=== PATIENT | male | born 1975 | race African-American/Black ===

== ENCOUNTER 2024-09-24 16:04 | Inpatient (IN) | payer OTHER, SELFPAY ==
[2024-09-24] VITALS (7 sets, daily range): BP systolic 114–144; BP diastolic 52–91; PULSE 80–96; RESP 15–24; TEMP 33.9–37.4; O2SAT 93–96; BMI 42.5
--- NOTE | 2024-09-24 | ECG_ITS ---
Test Reason : hypoglycemia Blood Pressure : */* mmHG Vent. Rate : 88 BPM Atrial Rate : 88 BPM P-R Int : 178 ms QRS Dur : 84 ms QT Int : 366 ms P-R-T Axes : 35 -11 50 degrees QTcB Int : 442 ms Normal sinus rhythm Inferior infarct , age undetermined Abnormal ECG No previous ECGs available Referred By: Generic ED Physician Electronically Signed By: LITZY WRIGHT MD
--- NOTE | ~2024-09-24 | US_ITS ---
CLINICAL HISTORY: Elevated BUN and creatinine rule out obstruction US Kidneys COMPARISON: None FINDINGS: Right kidney: Length 12.6 cm. Mild right hydronephrosis. Normal Doppler blood flow. No visible mass. No calculi. Left kidney: Length 11.1 cm. No hydronephrosis. Normal Doppler blood flow. No visible mass. No calculi. IMPRESSION: Mild right hydronephrosis. This document has been electronically signed by: Jas Barrera MD on 09/24/2024 22:39:59
[2024-09-24 16:20] LABS: Glucose, Whole Blood 145 mg/dL (60-115)
--- NOTE | 2024-09-24 16:42 | ED_ITS ---
HPI - General Adult General Chief complaint: General Medical Stated complaint: found unresponsive, poc 54, getting d10 now Time Seen by Provider: 09/24/24 16:41 Source: patient Mode of arrival: EMS Limitations: no limitations History of Present Illness ED Provider: Dr. Madhu Carrillo HPI narrative: 49-year-old male with a history of diabetes mellitus, hypertension and kidney disease who presents emergency department for evaluation of altered mental status and hypoglycemia. The patient states that he takes lispro insulin and Lantus insulin for his diabetes. This morning, he states that he was in a hurry and was getting his son off to school and did not check his glucose prior to giving himself insulin. Patient states that he gave himself lispro 20 units subcutaneously and he did not have time to eat breakfast yet to a doctor's appointment.. Patient states that the lispro pen and Lantus pen are significantly different and he does not believe that he confused the two insulin pens. The patient states that he was hospitalized last month at [facility] and was told that his kidney numbers were high and he was following up today with his primary care doctor for repeat blood work. He has not seen a manager integration yet. He states that when he got home from his doctor's appointment, he was tired, did not eat and went to sleep. The patient was then unresponsive. Paramedics noted your glucose was 50. He was given D10 IV and brought to the emergency department. Here in the emergency department the patient was found to be hypothermic with a rectal temperature of 93.1 degrees F. The patient was placed in a Montserrat Hugger warming blanket Related Data Allergies Allergy/AdvReac Type Severity Reaction Status Date / Time No Known Allergies Allergy Verified 09/24/24 16:21 Review of Systems 2 Review of Systems: Yes all other systems are reviewed and are negative COUNTS INCLUDE 234 BEDS AT THE [facility] Past Medical History COUNTS INCLUDE 234 BEDS AT THE [facility] Narrative: Social history: Patient denies tobacco use. He states that he rarely drinks alcohol. He states he uses an occasional marijuana gummy to help insomnia Social History Social History Smoked in Last 30 Days: No Use of substances other than those prescribed or required for medical reasons: No Advance Directives: No Advance Directives Information Provided: Yes Do you have a plan to hurt others: No Plan Physical Exam ED Vital Signs: Vital Signs - 24 hr 09/24/24 16:14 09/24/24 16:28 09/24/24 18:20 Temperature 93.1 F L 93.1 F L 96.1 F L Pulse Rate 86 87 92 Respiratory Rate 20 24 H 15 Blood Pressure 128/81 114/52 L 117/83 Pulse Oximetry 93 93 94 Oxygen Delivery Method Room Air Room Air Room Air 09/24/24 19:37 09/24/24 21:21 Temperature 98.4 F 99.1 F Pulse Rate 95 96 Respiratory Rate 18 18 Blood Pressure 144/91 H Pulse Oximetry 94 96 Oxygen Delivery Method Room Air Room Air BMI result Body Mass Index 42.5 Exam: General: Awake, alert in no distress Head: Normocephalic, atraumatic EENT: PERRL, Lids normal, sclera normal, conjunctiva normal, nose normal , ears normal, throat without erythema or exudates Neck: Supple, no adenopathy Lung: breath sounds symmetric, no wheezing, rales or rhonchi Chest: symmetric movement, nontender Heart: regular rate and rhythm, normal S1, S2 no murmurs or rubs Abdomen: soft, non-tender, nondistended, normal bowel sounds Back: no vertebral tenderness, no CVAT Extremities: Bilateral [id number] amputations Neuro: Awake, alert, oriented, normal speech, cranial nerves intact, moves all extremities symmetrically Psych: Pleasant, cooperative Medical Decision Making Medical Decision Making MDM Narrative: 49-year-old male with a history of diabetes mellitus, hypertension and kidney disease who presents emergency department for evaluation of altered mental status and hypoglycemia. The patient states that he takes lispro insulin and Lantus insulin for his diabetes. This morning, he states that he was in a hurry and was getting his son off to school and did not check his glucose prior to giving himself insulin. Patient states that he gave himself lispro 20 units subcutaneously and he did not have time to eat breakfast yet to a doctor's appointment.. Patient states that the lispro pen and Lantus pen are significantly different and he does not believe that he confused the two insulin pens. The patient states that he was hospitalized last month at [facility] and was told that his kidney numbers were high and he was following up today with his primary care doctor for repeat blood work. He has not seen a manager integration yet. He states that when he got home from his doctor's appointment, he was tired, did not eat and went to sleep. The patient was then unresponsive. Paramedics noted your glucose was 50. He was given D10 IV and brought to the emergency department. Here in the emergency department the patient was found to be hypothermic with a rectal temperature of 93.1 degrees F. The patient was placed in a Montserrat Hugger warming blanket. Patient's initial blood pressure was normal at 128/81. Physical examination revealed bilateral follow the knee amputations otherwise was unremarkable. Differential diagnosis: ?Includes but is not limited to hypoglycemia caused by renal failure, blurry intake, unintentional insulin overdose, anemia, electrolyte abnormalities Course: 22:03 My interpretation patient's laboratory evaluation is as follows: CBC was normal. Serum glucose elevated 119. BUN and creatinine elevated 41 and 5.06. Patient's highest BUN was 34 and his highest creatinine was 4.59 at [facility] in August 2024. Urinalysis : 4+ positive protein, positive glucose, trace ketones, that has, negative leukocyte esterase. Microscopic revealed no bacteria. 3-5 hyaline casts seen. The patient was given food to eat and his glucose in his glucose remained elevated with no further episodes of hypoglycemia. The patient is in his kept on the Montserrat Hugger until his temperature was above 98 degrees F.I did discuss the patient's presentation with the covering manager integration, Dr. Dixon. He was given hypoglycemia may be due to his worsening renal function. He recommended admission to follow his glucose and renal ultrasound reveal out obstruction. I did discuss the patient's presentation with the covering hospitalist, Dr. Hylton and the patient will be admitted to the hospitalist service for further treatment. Admission/Observation Consideration of admission/observation: Escalation of care including admission/observation considered (Yes) Consult Healthcare Provider Management of the patient was discussed with: Hospitalist (Dr. Hylton) and Boiler Welder (Dr. Dixon) Lab Data 09/24/24 17:04 09/24/24 17:04 Labs: Lab Results 09/24/24 09/24/24 09/24/24 Range/Units 16:16 17:04 18:54 WBC 8.4 (4.8-10.8) X10*3/uL RBC 4.67 (4.60-5.80) X10*6/uL Hgb 13.3 L (14.0-18.0) g/dl Hct 42.8 (42.0-52.0) % MCV 91.6 (80.0-98.0) fL MCH 28.5 (27.0-33.0) pg MCHC 31.1 (31.0-36.0) g/dl RDW 13.4 (11.0-16.0) % Plt Count 330 (160-400) X10*3/uL MPV 9.9 (9.4-12.4) fL Immature Gran % (Auto) 0.6 H (0.0-0.4) % Neut % (Auto) 90.4 H (45-73) % Lymph % (Auto) 5.2 L (20-40) % [place] % (Auto) 2.6 (2-11) % Eos % (Auto) 0.1 (0-4) % Baso % (Auto) 1.1 (0-2) % Lymph # (Auto) 0.4 L (1.2-4.9) X10*3/uL [place] # (Auto) 0.2 (0.1-1.2) X10*3/uL Eos # (Auto) 0.0 (0.0-0.4) X10*3/uL Baso # (Auto) 0.1 (0.0-0.2) X10*3/uL Abs Immat Gran (auto) 0.05 H (0.00-0.03) X10*3/uL Absolute Neuts (auto) 7.6 (2.0-8.3) x10*3/uL Absolute Nucleated RBC 0.000 (0.0-0.012) X10*3/uL Nucleated RBC % (auto) 0.0 (0.0-0.2) /100WBC Smear Tech's Comments VERIFIED Sodium 141 (135-145) mmol/L Potassium 4.3 (3.3-5.1) mmol/L Chloride 114 H (96-108) mmol/L Carbon Dioxide 14 L (22-29) mmol/L Anion Gap 17 (12-20) BUN 41 H (9-16) mg/dL Creatinine 5.06 H* (0.5-1.4) mg/dL Estim Creat Clear Calc 21.7 Estimated GFR 12 POC Glucose 145 H 166 H (60-115) mg/dL Random Glucose 119 H (60-115) mg/dL Calcium 8.9 (8.4-10.2) mg/dL Magnesium 2.4 (1.6-2.6) mg/dL Total Bilirubin 0.2 (0.0-1.0) mg/dL AST 26 (5-37) U/L ALT 20 (0-40) U/L Alkaline Phosphatase 91 (39-117) U/L Total Protein 6.1 L (6.5-8.0) g/dL Albumin 3.1 L (3.5-5.0) g/dL Urine Color Urine Appearance Urine pH (5.0-9.0) Ur Specific [place] (1.005-1.025) Urine Protein (Neg-Trace) mg/dL Urine Glucose (UA) (Negative) mg/dL Urine Ketones (Negative) mg/dL Urine Blood (Negative) Urine Nitrite (Negative) Ur Leukocyte Esterase (Negative) Urine RBC (0-2) /HPF Urine WBC (0-5) /HPF Ur Squamous Epith Cells (0-2) /HPF Urine Bacteria (None Seen) Hyaline Casts (0-2) /LPF Urine Opiates Screen (Not Detect) Ur Buprenorphine Scrn (Not Detect) ng/mL Ur Oxycodone Screen (Not Detect) ng/mL Urine Methadone Screen (Not Detect) ng/mL Urine Fentanyl Screen (Not Detect) Ur Barbiturates Screen (Not Detect) Ur Phencyclidine Scrn (Not Detect) Ur Amphetamines Screen (Not Detect) U Benzodiazepines Scrn (Not Detect) Urine Cocaine Screen (Not Detect) U Marijuana (THC) Screen (Not Detect) 09/24/24 Range/Units 18:57 WBC (4.8-10.8) X10*3/uL RBC (4.60-5.80) X10*6/uL Hgb (14.0-18.0) g/dl Hct (42.0-52.0) % MCV (80.0-98.0) fL MCH (27.0-33.0) pg MCHC (31.0-36.0) g/dl RDW (11.0-16.0) % Plt Count (160-400) X10*3/uL MPV (9.4-12.4) fL Immature Gran % (Auto) (0.0-0.4) % Neut % (Auto) (45-73) % Lymph % (Auto) (20-40) % [place] % (Auto) (2-11) % Eos % (Auto) (0-4) % Baso % (Auto) (0-2) % Lymph # (Auto) (1.2-4.9) X10*3/uL [place] # (Auto) (0.1-1.2) X10*3/uL Eos # (Auto) (0.0-0.4) X10*3/uL Baso # (Auto) (0.0-0.2) X10*3/uL Abs Immat Gran (auto) (0.00-0.03) X10*3/uL Absolute Neuts (auto) (2.0-8.3) x10*3/uL Absolute Nucleated RBC (0.0-0.012) X10*3/uL Nucleated RBC % (auto) (0.0-0.2) /100WBC Smear Tech's Comments Sodium (135-145) mmol/L Potassium (3.3-5.1) mmol/L Chloride (96-108) mmol/L Carbon Dioxide (22-29) mmol/L Anion Gap (12-20) BUN (9-16) mg/dL Creatinine (0.5-1.4) mg/dL Estim Creat Clear Calc Estimated GFR POC Glucose (60-115) mg/dL Random Glucose (60-115) mg/dL Calcium (8.4-10.2) mg/dL Magnesium (1.6-2.6) mg/dL Total Bilirubin (0.0-1.0) mg/dL AST (5-37) U/L ALT (0-40) U/L Alkaline Phosphatase (39-117) U/L Total Protein (6.5-8.0) g/dL Albumin (3.5-5.0) g/dL Urine Color Yellow Urine Appearance Clear Urine pH 5.5 (5.0-9.0) Ur Specific [place] 1.020 (1.005-1.025) Urine Protein >=1000 (4+) H (Neg-Trace) mg/dL Urine Glucose (UA) 100 H (Negative) mg/dL Urine Ketones Trace (Negative) mg/dL Urine Blood Negative (Negative) Urine Nitrite Negative (Negative) Ur Leukocyte Esterase Negative (Negative) Urine RBC 0-2 (0-2) /HPF Urine WBC 0-5 (0-5) /HPF Ur Squamous Epith Cells 0-2 (0-2) /HPF Urine Bacteria None Seen (None Seen) Hyaline Casts 3-5 (0-2) /LPF Urine Opiates Screen Not Detected (Not Detect) Ur Buprenorphine Scrn Not Detected (Not Detect) ng/mL Ur Oxycodone Screen Not Detected (Not Detect) ng/mL Urine Methadone Screen Not Detected (Not Detect) ng/mL Urine Fentanyl Screen Not Detected (Not Detect) Ur Barbiturates Screen Not Detected (Not Detect) Ur Phencyclidine Scrn Not Detected (Not Detect) Ur Amphetamines Screen Not Detected (Not Detect) U Benzodiazepines Scrn Not Detected (Not Detect) Urine Cocaine Screen Not Detected (Not Detect) U Marijuana (THC) Screen Not Detected (Not Detect) Independent Interpretation I performed an independent interpretation of an: EKG Interpretation: My independent interpretation patient's 12 EKG done on 09/24/2024 at 17:06 hours is as follows: Normal sinus rhythm with a rate of 88, normal ID interval, QRS duration QTC interval, no ST segment elevation, no ST segment depression, Q- waves in lead 3 no significant T-wave abnormalities, no PACs, no PVCs. Critical Care Time Critical Care Time Critical Care Time: Yes Total Critical Care Time: 45 Attestation: Critical Care: The patient was critically ill with a high probability of imminent or life threatening deterioration. I spent greater than 30 minutes of discontinuous time evaluating the patient,delivering critical care at the bedside, discussing and evaluating pertinent data with consultants. Critical care time does not include time spent performing separately billable procedures or teaching. Total time spent performing critical care was 45 minutes. Discharge Plan Discharge Patient Disposition: Admitted As Inpatient Print Language: Yi
--- OUTSIDE RECORDS SUMMARY | 2024-09-24 16:42 | XMS_ITS | Clinical Summary ---
Author Organization [facility] [address] [facility] Address [address] [place] [address] Phone Care Team Providers Care Hearing Health Technician Name Role Phone Elizabeth De La Fuente MD Primary Care Provider [phone] Allergies No known active allergies Medications blood-glucose meter (Freestyle InsuLinx) misc 1 Each by Does not apply route 4 times daily. 3 Active flash glucose sensor (FreeStyle Lizette 2 Sensor) kit 1 Each by Does not apply route every 14 days. 2 Active compression socks, large misc 1 Each by Does not apply route daily. 2 Active freestyle (FreeStyle Lancets) 28 gauge lancets Use daily 90 each 5 Active glucose blood (Freestyle InsuLinx Test Strips) test strip Use as instructed 100 each 12 5 Active pen needle, diabetic (BD Ultra-Fine Short Pen Needle) 31 gauge x 5/16 needle Use new needle with each insulin injection, 4x/day 400 each 5 Active amLODIPine (NORVASC) 10 mg tablet Take 1 tablet (10 mg total) by mouth 1 (one) time each day. 90 each 5 12/24/19 25 Active hydrALAZINE (APRESOLINE) 50 mg tablet Take 1 tablet (50 mg total) by mouth 3 (three) times a day. 270 each 5 12/24/19 25 Active insulin glargine (LANTUS SoloStar) 100 unit/mL (3 mL) injection pen Inject 30 Units under the skin at bedtime. 30 mL 1 5 04/12/20 25 Active insulin lispro (HumaLOG KwikPen Insulin) 100 unit/mL injection pen Inject into skin 3 times a day before meal <100: 0u, 100-130: 10u, 131-160: 15u, 161-190: 20u, 191-220: 25u, 221-250: 30u, 251-280: 35u,281-310: 40u, 311-340: 45u, 341-370: 48u, and call me. Max dose of 147u per day. 15 mL 2 5 Active metoprolol tartrate (LOPRESSOR) 25 mg tablet Take 1 tablet (25 mg total) by mouth 2 (two) times a day. 180 each 5 12/24/19 25 Active amLODIPine (NORVASC) 10 mg tablet Take 1 tablet (10 mg total) by mouth 1 (one) time each day. 90 each 5 09/25/19 25 Discontinu ed(Reorder ) insulin glargine (LANTUS SoloStar) 100 unit/mL (3 mL) injection pen Inject 30 Units under the skin at bedtime. 30 mL 5 09/25/19 25 Discontinu ed(Reorder ) hydrALAZINE (APRESOLINE) 50 mg tablet Take 1 tablet (50 mg total) by mouth 3 (three) times a day. 270 each 5 09/25/19 25 Discontinu ed(Reorder ) metoprolol tartrate (LOPRESSOR) 25 mg tablet Take 1 tablet (25 mg total) by mouth 2 (two) times a day. 180 each 5 09/25/19 25 Discontinu ed(Reorder ) insulin lispro (HumaLOG KwikPen Insulin) 100 unit/mL injection pen Inject into skin 3 times a day before meal <100: 0u, 100-130: 10u, 131-160: 15u, 161-190: 20u, 191-220: 25u, 221-250: 30u, 251-280: 35u,281-310: 40u, 311-340: 45u, 341-370: 48u, and call me. Max dose of 147u per day. 15 mL 2 5 09/25/19 25 Discontinu ed(Reorder ) Active Problems Problem Noted Date Diagnosed Date Acute on chronic renal failure [place] [place] 01/2025 CKD (chronic kidney disease) stage 3, GFR 30-59 ml/min [place] [place] [facility] [place] 12/30/2020 DM (diabetes mellitus), type 2 with neurological complications [place] [place] [facility] [place] 12/30/2020 DM (diabetes mellitus), type 2 with renal complications [place] [place] [facility] [place] 12/30/2020 Osteomyelitis of right foot [place] [place], [facility] V28) 12/29/2019 DM (diabetes mellitus), type 2 with peripheral vascular complications [place] [place] [facility] [place] 01/08/2019 HTN (hypertension), benign 04/16/2018 Vasculogenic erectile dysfunction 07/05/2016 Microalbuminuria 04/04/2016 Callus of foot 08/10/2015 Encounters Date Type Department Care Team Description 09/24/2024 9:00 AM EDT Office Visit Adult Medicine [address] [phone] Elizabeth De La Fuente MD Stage 3 chronic kidney disease, unspecified whether stage 3a or 3b CKD [place] [place] [facility] [place] (Primary Dx); HTN (hypertension), benign 09/10/2024 Telephone Adult Medicine [address] [phone] Alea Stahl MA Hospital Follow-up (Hospital follow up reschedule for today @12:30pm) 09/07/2024 Telephone Adult [address] [phone] Elizabeth De La Fuente MD Hospital Follow-up (Reschedule ) 08/25/2024 Telephone Adult Medicine [address] [phone] Alea Stahl MA VNA 08/19/2024 7:52 PM EDT - 08/21/2024 4:15 PM EDT Hospital Encounter [facility] [address] [place] [id number] Kole Daley MD Jones, Christopher, MD Mohani, Priya, MD MIGNON (acute kidney injury) [place] [place] (Primary Dx); Acute on chronic renal failure ([facility] V24); Type 2 diabetes mellitus with stage 3b chronic kidney disease, with long-term current use of insulin ([facility] V24, [facility] V28); Stage 3 chronic kidney disease, unspecified whether stage 3a or 3b CKD [place] [place] [facility] [place] Discharge Disposition: Home-Health Care c 08/18/2024 - 08/19/2024 1:49 AM EDT Emergency [facility] Emergency [address] [place] [id number] Discharge Disposition: ED Dismiss - Never Arrived 08/18/2024 Telephone Adult Medicine [address] [phone] Claire Martinez RN 08/17/2024 4:00 PM EDT Office Visit Adult Medicine [address] [phone] Manjula Juárez PA DM (diabetes mellitus), type 2 with peripheral vascular complications [place] [place] [facility] [place] (Primary Dx); HTN (hypertension), benign; Microalbuminuria; Stage 3 chronic kidney disease, unspecified whether stage 3a or 3b CKD [place] [place], [facility] V28) 08/13/2024 Telephone Adult Medicine [address] [phone] Elizabeth De La Fuente MD PT 1 from Last 3 Months Immunizations Name Administration Dates Next Due Influenza Quadravalent, MDCK , 0.5ml, with preservative (Flucelvax) 6mo and older 01/30/2018 Influenza trivalent, 0.5mL, preservative free (Fluarix; FluLaval; Fluzone) ages 6mo and older (Afluria) 3 years and older 01/16/2019,12/15/2016,04/04/2016,2014 Tdap Tetanus diptheria acell ular pertussis (Boostrix; Adacel) 7yo and older 04/04/2016 Surgical History Surgery Date Site/Laterality Comments EYE SURGERY PROCEDURE: HISTORICAL EYE SURGERY; COMMENT: lasik FOOT SURGERY 07/2016 PROCEDURE: HISTORICAL FOOT SURGERY; COMMENT: left 1st MTP resection - intact toe Medical History Medical History Date Comments DM (diabetes mellitus) type II uncontrolled, periph vascular disorder 08/09/2015 DX:DM (diabetes mellitus) type II uncontrolled, periph vascular disorder DM (diabetes mellitus), type 2 with peripheral vascular complications ([facility] V24, [facility] V28) 01/08/2019 DX:DM (diabetes mellitus), type 2 with peripheral vascular complications (HCC) DM (diabetes mellitus), type 2 with neurological complications ([facility] V24, [facility] V28) 12/30/2020 DX:DM (diabetes mellitus), t ype 2 with neurological complications (HCC) DM (diabetes mellitus), type 2 with renal complications ([facility] V24, [facility] V28) 12/30/2020 DX:DM (diabetes mellitus), t ype 2 with renal complications (HCC) CKD (chronic kidney disease) stage 3, GFR 30-59 ml/min ([facility] V24, [facility] V28) 12/30/2020 DX:CKD (chronic kidney disea se) stage 3, GFR 30-59 ml/min ([facility]) Microalbuminuria 04/04/2016 DX:Microalbumin uria Family History Medical History Relation Name Comments Diabetes Uncle 1 Father's side Relation Name Status Comments Father Alive healthy Mother Alive healthy Sister Alive healthy Uncle 1 Uncle 2 Social History Tobacco Use Types Packs/Day Years Used Date Smoking Tobacco: Never Smokeless Tobacco: Never Alcohol Use Standard Drinks/Week Comments Not Currently 0 (1 standard drink = 0.6 oz pur e alcohol) social drinker in the past Interpersonal Safety Answer Date Record ed Physical Abuse 08/20/2024 Verbal Abuse 08/20/2024 Sex and Gender Information Value Date Recorded Sex Assigned at Male 08/19/2024 8:29 PM EDT Legal Sex Male 8:28 PM EST Gender Identity Male 08/19/2024 8:29 PM EDT Sexual Orientation Straight 08/19/2024 8: 29 PM EDT Obstetrics History Last Filed Vital Signs Vital Sign Reading Time Taken Comments Blood Pressure 118/74 09/24/2024 9:04 AM EDT Pulse 110 09/24/2024 9:04 AM EDT Temperature 36.6 ??C (97.9 ??F) 09/24/2024 9:04 AM ED T Respiratory Rate 14 09/24/2024 9:04 AM EDT Oxygen Saturation 98% 09/24/2024 9:04 AM EDT Inhaled Oxygen Concentration - - Weight 130 kg (287 lb) 09/24/2024 9:04 AM EDT Height 190.5 cm (6' 3 ) 09/24/2024 9:04 AM EDT Body Mass Index 35.87 09/24/2024 9:04 AM EDT Plan of Treatment Upcoming Encounters Date Type Department Care Team (Late st Contact Info) Description 11/25/2024 11:00 AM EDT Office Visit Adult Medicine [address] [phone] Manjula Juárez PA [address] [place] [phone] Health Maintenance Due Date Last Done Comments Diabetes: Annual Foot Exam 1986 Diabetes: Annual Retina Eye Exam 1986 Hepatitis B Vaccines (1 of 3 - 19+ 3-dose series) 1995 Pneumococcal Vaccine: Pediatrics (0 to 5 Years) and At-Risk Patients (6 to 64 Years) (2 of 2 - PCV) 07/30/2017 07/30/2016 Colorectal Cancer Screening: Colonoscopy 04/14/2022 Depression Screening 04/14/2022 HIV Screening 04/14/2022 Social Influencers of Health Screening 04/14/2022 COVID-19 Vaccine ( season) 2024 04/04/2021, 08/26/2020, 08/04/2020 Influenza Vaccine (Season Ended) 2025 02/09/2022, 04/04/2021, 01/16/2019, Additional history exists Diabetes: Blood Sugar Control Test (HGBA1C) 02/16/2025 08/17/2024, 08/27/2022 Diabetes: Annual Urine Albumin-Creatinine Ratio (uACR) 08/17/2025 08/17/2024, 08/27/2022 Diabetes: Annual GFR (Glomerular Filtration Rate) 08/21/2025 09/24/2024, 08/21/2024, 08/20/2024, Additional history exists Hypertension/CHF/CAD Annual BMP Blood Test 08/21/2025 09/24/2024, 08/21/2024, 08/20/2024, Additional history exists DTaP,Tdap,and Td Vaccines (2 - Td or Tdap) 04/04/2026 04/04/2016 Cholesterol Screening (Lipid Panel) 08/17/2029 09/24/2024, 08/17/2024, 11/28/2021 Hepatitis C Screening Completed 08/21/2024 HIB Vaccines Aged Out No longer eligi ble based on patient's age to complete this topic HPV Vaccines Aged Out No longer eligi ble based on patient's age to complete this topic Hepatitis A Vaccines Aged Out No long er eligible based on patient's age to complete this topic IPV Vaccines Aged Out No longer eligi ble based on patient's age to complete this topic MMR Vaccines Aged Out No longer eligi ble based on patient's age to complete this topic Meningococcal ACWY Vaccine Aged Out N o longer eligible based on patient's age to complete this topic Meningococcal B Vaccine Aged Out No l onger eligible based on patient's age to complete this topic RSV Immunization Patients Under 20 months Aged Out No longer eligible based on patient's age to complete this topic Varicella Vaccines Aged Out No longer eligible based on patient's age to complete this topic Procedures Procedure Name Priority Date/Time Associated Diagnosis Comments CBC WITH AUTO DIFFERENTIAL Routine 09/24/2024 9:56 AM EDT Stage 3 chronic kidney disease, unspecified whether stage 3a or 3b CKD ([facility] V24, [facility] V28) CBC AND DIFFERENTIAL Routine 09/24/2024 9:56 AM EDT Stage 3 chronic kidney disease, unspecified whether stage 3a or 3b CKD (CMS/HCC V24, CMS/HCC V28) COMPREHENSIVE METABOLIC PANEL Routine 09/24/2024 9:56 AM EDT Stage 3 chronic kidney disease, unspecified whether stage 3a or 3b CKD (CMS/HCC V24, CMS/HCC V28) LIPID PANEL WITH REFLEX TO DIRECT LDL Routine 09/24/2024 9:56 AM EDT HTN (hypertension), benign HEPATITIS C ANTIBODY Routine 08/21/2024 12:21 PM EDT HEPATITIS B SURFACE ANTIGEN WITH CONFIRMATION Routine 08/21/2024 12:21 PM EDT ANTI-NEUTROPHILIC CYTOPLASMIC ANTIBODY Routine 08/21/2024 12:21 PM EDT C4 COMPLEMENT Routine 08/21/2024 12:21 PM EDT C3 COMPLEMENT Routine 08/21/2024 12:21 PM EDT DAMARIS IFA WITH TITER AND PATTERN Routine 08/21/2024 12:21 PM EDT POCT GLUCOSE BLOOD Routine 08/21/2024 11 :31 AM EDT POCT GLUCOSE BLOOD Routine 08/21/2024 8: 10 AM EDT WV IMMUNOFIXATION ELECTROPHORESIS SERUM Routine 08/21/2024 6:56 AM EDT IMMUNOGLOBULINS IGG, IGA, IGM Routine 08/21/2024 6:56 AM EDT IMMUNOFIXATION ELECTROPHORESIS Routine 08/21/2024 6:56 AM EDT CBC WITH AUTO DIFFERENTIAL Routine 08/21/2024 6:56 AM EDT IMMUNOFIXATION ELECTROPHORESIS Routine 08/21/2024 6:56 AM EDT VITAMIN D 25 HYDROXY Routine 08/21/2024 6:56 AM EDT PARATHYROID HORMONE INTACT Routine 08/21/2024 6:56 AM EDT MAGNESIUM Routine 08/21/2024 6:56 AM EDT CBC AND DIFFERENTIAL Routine 08/21/2024 6:56 AM EDT BASIC METABOLIC PANEL Routine 08/21/2024 6:56 AM EDT POCT GLUCOSE BLOOD Routine 08/20/2024 7: 56 PM EDT POCT GLUCOSE BLOOD Routine 08/20/2024 4: 10 PM EDT POCT GLUCOSE BLOOD Routine 08/20/2024 11 :09 AM EDT POCT GLUCOSE BLOOD Routine 08/20/2024 8: 19 AM EDT CBC WITH AUTO DIFFERENTIAL Routine 08/20/2024 6:35 AM EDT CBC AND DIFFERENTIAL Routine 08/20/2024 6:35 AM EDT BASIC METABOLIC PANEL Routine 08/20/2024 6:35 AM EDT YELLOW URINE NO ADDITIVE Routine 08/20/2024 3:20 AM EDT EXTRA TUBES Routine 08/20/2024 3:20 AM EDT CREATININE, URINE, RANDOM STAT 08/20/2024 3:20 AM EDT ECG 12-LEAD Routine 08/20/2024 1:23 AM EDT POCT GLUCOSE BLOOD Routine 08/20/2024 12 :[address] ABDOMEN PELVIS WO CONTRAST STAT 08/19/2024 9:17 PM EDT PHOSPHORUS Add-On 08/19/2024 4:32 PM EDT URIC ACID Add-On 08/19/2024 4:32 PM EDT MAGNESIUM Add-On 08/19/2024 4:32 PM EDT CBC WITH AUTO DIFFERENTIAL STAT 08/19/2024 4:32 PM EDT COMPREHENSIVE METABOLIC PANEL STAT 08/19/2024 4:32 PM EDT CBC AND DIFFERENTIAL STAT 08/19/2024 4:32 PM EDT REYNA URINE CULTURE TUBE STAT 08/19/2024 4:29 PM EDT URINALYSIS WITH REFLEX MICROSCOPIC AND CULTURE STAT 08/19/2024 4:29 PM EDT URINALYSIS WITH REFLEX MICROSCOPIC AND CULTURE STAT 08/19/2024 4:29 PM EDT CULTURE URINE STAT 08/19/2024 4:29 PM EDT POC GLUCOSE Routine 08/18/2024 9:42 AM EDT DM (diabetes mellitus), type 2 with peripheral vascular complications (CMS/HCC V24, CMS/HCC V28) PROTEIN, URINE, RANDOM STAT Add-on 4:53 PM EDT SODIUM, URINE, RANDOM STAT Add-on 08/17/2024 4:53 PM EDT MICROALBUMIN CREATININE URINE RATIO Routine 08/17/2024 4:53 PM EDT DM (diabetes mellitus), type 2 with peripheral vascular complications (CMS/HCC V24, [facility] V28) Microalbuminuria COMPREHENSIVE METABOLIC PANEL Routine 08/17/2024 4:52 PM EDT HTN (hypertension), benign Stage 3 chronic kidney disease, unspecified whether stage 3a or 3b CKD [place] [place] [facility] [place] LIPID PANEL WITH REFLEX TO DIRECT LDL Routine 08/17/2024 4:52 PM EDT DM (diabetes mellitus), type 2 with peripheral vascular complications [place] [place] [facility] [place] HTN (hypertension), benign HEMOGLOBIN A1C Routine 08/17/2024 4:51 PM EDT DM (diabetes mellitus), type 2 with peripheral vascular complications [place] [place] [facility] [place] from Last 3 Months Results * (ABNORMAL) Lipid panel with reflex to direct LDL (09/24/2024 9:56 AM EDT) Only the most recent of2 resultswithin the time period is included. Cholesterol 309(H) 0 - 200 mg/dL LAB CHEMISTRY METHOD 09/24/2024 1:22 PM [facility] Triglycerides 53 0 - 150 mg/dL LAB CHEMISTRY METHOD 09/24/2024 1:22 PM [facility] HDL 190 >=40 mg/dL LAB CHEMISTRY METHOD 09/24/2024 1:22 PM [facility] LDL Calculated 108(H) 0 - 100 mg/dL LAB CHEMISTRY METHOD 09/24/2024 1:22 PM [facility] VLDL Cholesterol Jordan 10.6 mg/dL LAB CHEMISTRY METHOD 09/24/2024 1:22 PM [facility] Non HDL Chol. (LDL+VLDL) 119 <145 mg/dL LAB CHEMISTRY METHOD 09/24/2024 1:22 PM [facility] Chol/HDL Ratio 1.6 0.0 - 4.4 LAB CHEMISTRY METHOD 09/24/2024 1:22 PM [facility] Blood Venous blood specimen / Unknown Venipuncture / Unknown 09/24/2024 9:56 AM EDT 09/24/2024 9:56 AM EDT us Elizabeth De La Fuente MD LAB BLOOD ORDERABLES Final Resul t [facility] [address] [place] [address], * (ABNORMAL) CBC auto differential (09/24/2024 9:56 AM EDT) Only the most recent of4 resultswithin the time period is included. WBC 6.7 4.8 - 10.8 K/mcL LAB HEMETOLOGY METHOD 09/24/2024 12:24 PM EDT [facility] RBC 4.70 4.50 - 5.50 M/mcL LAB HEMETOLOGY METHOD 09/24/2024 12:24 PM EDT [facility] Hemoglobin 13.3(L) 13.5 - 17.5 g/dL LAB HEMETOLOGY METHOD 09/24/2024 12:24 PM EDT [facility] Hematocrit 40.5(L) 42.0 - 54.0 % LAB HEMETOLOGY METHOD 09/24/2024 12:24 PM EDT [facility] MCV 87.1 79.0 - 98.0 FL LAB HEMETOLOGY METHOD 09/24/2024 12:24 PM EDT [facility] MCH 28.6 27.0 - 32.0 pcg LAB HEMETOLOGY METHOD 09/24/2024 12:24 PM EDT [facility] MCHC 32.8 32.0 - 37.0 g/dL LAB HEMETOLOGY METHOD 09/24[facility]24 [facility] RDW 13.2 11.0 - 15.0 % LAB HEMETOLOGY METHOD 09/24/2024 12:24 PM [facility] Platelets 449(H) 130 - 400 K/mcL LAB HEMETOLOGY METHOD 09/24/2024 12:24 PM [facility] MPV 10.2 7.0 - 11.0 FL LAB HEMETOLOGY METHOD 09/24/2024 12:24 PM [facility] NRBC 0.0 <1.0 % LAB HEMETOLOGY METHOD 09/24/2024 12:24 PM [facility] NRBC Absolute 0.00 <0.10 K/mcL LAB HEMETOLOGY METHOD 09/24/2024 12:24 PM [facility] Neutrophils Relative 73.1 % LAB HEMETOLOGY METHOD 09/24/2024 12:24 PM [facility] Lymphocytes Relative 17.9 % LAB HEMETOLOGY METHOD 09/24/2024 12:24 PM [facility] Monocytes Relative 6.0 % LAB HEMETOLOGY METHOD 09/24/2024 12:24 PM [facility] Eosinophils Relative 0.9 % LAB HEMETOLOGY METHOD 09/24/2024 12:24 PM [facility] Basophils Relative 1.2 % LAB HEMETOLOGY METHOD 09/24/2024 12:24 PM [facility] Immature Granulocytes Relative 0.9 % LAB HEMETOLOGY METHOD 09/24/2024 12:24 PM [facility] Neutrophils Absolute 4.87 1.50 - 7.00 K/mcL LAB HEMETOLOGY METHOD 09/24/2024 12:24 PM [facility] Lymphocytes Absolute 1.19 1.00 - 5.00 K/mcL LAB HEMETOLOGY METHOD 09/24/2024 12:24 PM [facility] Monocytes Absolute 0.40 0.20 - 1.00 K/mcL LAB HEMETOLOGY METHOD 09/24/2024 12:24 PM EDT [facility] Eosinophils Absolute 0.06 0.00 - 0.50 K/mcL LAB HEMETOLOGY METHOD 09/24/2024 12:24 PM EDT [facility] Basophils Absolute 0.08 0.00 - 0.20 K/mcL LAB HEMETOLOGY METHOD 09/24/2024 12:24 PM EDT [facility] Immature Granulocytes Absolute 0.06(H) 0.00 - 0.03 K/mcL LAB HEMETOLOGY METHOD 09/24/2024 12:24 PM EDT [facility] Blood Venous blood specimen / Unknown Venipuncture / Unknown 09/24/2024 9:56 AM EDT 09/24/2024 9:56 AM EDT us Elizabeth De La Fuente MD LAB BLOOD ORDERABLES Final Resul t [facility] [address] [place] [address], [place] [phone] * (ABNORMAL) Comprehensive metabolic panel (09/24/2024 9:56 AM EDT) Only the most recent of3 resultswithin the time period is included. Sodium 140 133 - 145 mmol/L LAB CHEMISTRY METHOD 09/24/2024 1:22 PM [facility] Potassium 4.2 3.5 - 5.5 mmol/L LAB CHEMISTRY METHOD 09/24/2024 1:22 PM [facility] Chloride 113(H) 96 - 110 mmol/L LAB CHEMISTRY METHOD 09/24/2024 1:22 PM [facility] CO2 20(L) 21 - 32 mmol/L LAB CHEMISTRY METHOD 09/24/2024 1:22 PM [facility] Anion Gap 7 3 - 11 LAB CHEMISTRY METHOD 09/24/2024 1:22 PM [facility] Glucose 52(L) 70 - 100 mg/dL LAB CHEMISTRY METHOD 09/24/2024 1:22 PM [facility] BUN 40(H) 5 - 25 mg/dL LAB CHEMISTRY METHOD 09/24/2024 1:22 PM [facility] Creatinine 5.44(H) 0.70 - 1.30 mg/dL LAB CHEMISTRY METHOD 09/24/2024 1:22 PM [facility] eGFR 12(L) >=60 mL/min/1. 73m2 LAB CHEMISTRY METHOD 09/24/2024 1:22 PM [facility] Comment:Calculation based on the Chronic Kidney Disease Epidemiology Collaboration (CKD-EPI) equation refit without adjustment for race. BUN/Creatinine Ratio 7.4 LAB CHEMISTRY METHOD 09/24/2024 1:22 PM [facility] Calcium 9.1 8.5 - 10.5 mg/dL LAB CHEMISTRY METHOD 09/24/2024 1:22 PM [facility] AST (SGOT) 20 10 - 42 unit/L LAB CHEMISTRY METHOD 09/24/2024 1:22 PM [facility] ALT (SGPT) 25 10 - 60 unit/L LAB CHEMISTRY METHOD 09/24/2024 1:22 PM [facility] Alkaline Phosphatase 110 42 - 121 unit/L LAB CHEMISTRY METHOD 09/24/2024 1:22 PM [facility] Total Protein 5.9(L) 6.0 - 8.0 g/dL LAB CHEMISTRY METHOD 09/24/2024 1:22 PM [facility] Albumin 2.5(L) 3.2 - 5.0 g/dL LAB CHEMISTRY METHOD 09/24/2024 1:22 PM [facility] Total Bilirubin 0.2 0.0 - 1.4 mg/dL LAB CHEMISTRY METHOD 09/24/2024 1:22 PM [facility] Blood Venous blood specimen / Unknown Venipuncture / Unknown 09/24/2024 9:56 AM EDT 09/24/2024 9:56 AM EDT us Elizabeth De La Fuente MD LAB BLOOD ORDERABLES Final Resul t Performing Organization Address [facility]/ZIP Co de Phone Number [facility] [address] [place] [address], [place] [phone] * Hepatitis C antibody (08/21/2024 12:21 PM EDT) Pathologist [facility] Hepatitis C Antibody Negative Negative LAB CHEMISTRY METHOD 08/21/2024 3:29 PM EDT [facility] Blood Venous blood specimen / Unknown Venipuncture / Unknown 08/21/2024 12:21 PM EDT 08/21/2024 12:41 PM EDT Charan Villalobos MD LAB BLOOD ORDERABLES Final Res ult Performing Organization Address [facility] de Phone Number [facility] [address] [place] [address], [place] [phone] * Hepatitis B surface antigen with reflex to confirmation (08/21/2024 12:21 PM EDT) [facility] Hepatitis B Surface Ag Negative Negative LAB CHEMISTRY METHOD 08/21/2024 3:01 PM EDT [facility] Blood Venous blood specimen / Unknown Venipuncture / Unknown 08/21/2024 12:21 PM EDT 08/21/2024 12:41 PM EDT Narrative [facility] - 08/21/2024 3:01 PM EDT Over the counter supplements containing high doses of biotin may interfere with this assay. ??If interference is suspected, patients shoud be retested after refraining from biotin supplements for 72 hours. us Charan Villalobos MD LAB BLOOD ORDERABLES Final Res ult Performing Organization Address [facility] Co de Phone Number [facility] [address] [place] [address], [place] [phone] * DAMARIS IFA with titer and pattern (08/21/2024 12:21 PM EDT) [facility] DAMARIS Negative Negative 08/24/2024 2:37 PM EDT [facility] Blood Venous blood specimen / Unknown Venipuncture / Unknown 08/21/2024 12:21 PM EDT 08/21/2024 12:41 PM EDT us Charan Villalobos MD LAB BLOOD ORDERABLES Final Res ult [facility] [address] [place] [address], [place] [phone] * Anti-neutrophilic cytoplasmic antibody (08/21/2024 12:21 PM EDT) [facility] Myeloperoxidase Ab Negative Negative LAB CHEMISTRY METHOD 08/26/2024 1:05 PM EDT [facility] Myeloperoxidase Ab, Quant 1 <=20 units LAB CHEMISTRY METHOD 08/26/2024 1:05 PM EDT [facility] Proteinase-3 Ab Negative Negative LAB CHEMISTRY METHOD 08/26/2024 1:05 PM EDT [facility] Proteinase-3 Ab Quant 1 <=20 units LAB CHEMISTRY METHOD 08/26/2024 1:05 PM EDT [facility] Blood Venous blood specimen / Unknown Venipuncture / Unknown 08/21/2024 12:21 PM EDT 08/21/2024 12:41 PM EDT us Charan Villalobos MD LAB BLOOD ORDERABLES Final Res ult [facility] [address] [place] [address], [place] [phone] * C3 complement (08/21/2024 12:21 PM EDT) C3 Complement 125 88 - 201 mg/dL LAB CHEMISTRY METHOD 08/21/2024 1:44 PM EDT [facility] Blood Venous blood specimen / Unknown Venipuncture / Unknown 08/21/2024 12:21 PM EDT 08/21/2024 12:41 PM EDT Charan Villalobos MD LAB BLOOD ORDERABLES Final Res ult Performing Organization Address City/[facility]/ZIP Co de Phone Number [facility] [address] [place] [address], [place] [phone] * (ABNORMAL) C4 complement (08/21/2024 12:21 PM EDT) C4 Complement 54(H) 16 - 47 mg/dL LAB CHEMISTRY METHOD 08/21/2024 1:44 PM EDT [facility] Blood Venous blood specimen / Unknown Venipuncture / Unknown 08/21/2024 12:21 PM EDT 08/21/2024 12:41 PM EDT Charan Villalobos MD LAB BLOOD ORDERABLES Final Res ult Performing Organization Address City/[facility]/ZIP Co de Phone Number [facility] [address] [place] [address], [place] [phone] * (ABNORMAL) POCT Glucose, blood (08/21/2024 11:31 AM EDT) Only the most recent of7 resultswithin the time period is included. Glucose POCT 231(H) 70 - 100 mg/dL 08/21/2024 11:32 AM EDT [facility] Blood Capillary blood specimen / Unknown 08/21/2024 11:31 AM EDT 08/21/2024 11:34 AM EDT Sonia Upton MD LAB POINT OF CARE TE ST DOCKED DEVICE UNSOLICITED RESULTS Final Result Performing Organization Address [facility]/ZIP Co de Phone Number [facility] [address] [place] [address], [place] [phone] * Pathologist Review Immunofixation (08/21/2024 6:56 AM EDT) Pathologist [facility] Pathologist Interpretation Reviewed by Criselda Mcdowell MD 08/25/2024 1:52 PM EDT [facility] Blood Venous blood specimen / Unknown Venipuncture / Unknown 08/21/2024 6:56 AM EDT 08/21/2024 7:41 AM EDT us Tobin Alfaro MD LAB BLOOD ORDERABLES Final Resu lt Performing Organization Address [facility]/ZIP Co de Phone Number [facility] [address] [place] [address], [place] [phone] * (ABNORMAL) Vitamin D 25 hydroxy (08/21/2024 6:56 AM EDT) Pathologist [facility] Vit D, 25-Hydroxy 11.0(L) 30.0 - 80.0 ng/mL LAB CHEMISTRY METHOD 08/21/2024 9:32 AM EDT [facility] Blood Venous blood specimen / Unknown Venipuncture / Unknown 08/21/2024 6:56 AM EDT 08/21/2024 7:42 AM EDT us Tobin Alfaro MD LAB BLOOD ORDERABLES Final Resu lt Performing Organization Address City/[facility]/ZIP Co de Phone Number [facility] [address] [place] [address], [place] [phone] * Immunofixation electrophoresis serum (08/21/2024 6:56 AM EDT) [facility] Immunofixation Result, Serum No monoclonal immunoglobulins detected. LAB CHEMISTRY METHOD 08/25/2024 1:52 PM EDT [facility] Blood Venous blood specimen / Unknown Venipuncture / Unknown 08/21/2024 6:56 AM EDT 08/21/2024 7:41 AM EDT us Tobin Alfaro MD LAB BLOOD ORDERABLES Final Resu lt Performing Organization Address [facility]/ZIP Co de Phone Number [facility] [address] [place] [address], [place] [phone] * (ABNORMAL) Immunoglobulins IgG, IgA, IgM (08/21/2024 6:56 AM EDT) Total IgG 498(L) 549 - 1,584 mg/dL LAB CHEMISTRY METHOD 08/21/2024 8:35 AM EDT [facility] IgA 176 61 - 348 mg/dL LAB CHEMISTRY METHOD 08/21/2024 8:35 AM EDT [facility] IgM 50 23 - 259 mg/dL LAB CHEMISTRY METHOD 08/21/2024 8:35 AM EDT [facility] Blood Venous blood specimen / Unknown Venipuncture / Unknown 08/21/2024 6:56 AM EDT 08/21/2024 7:42 AM EDT us Tobin Alfaro MD LAB BLOOD ORDERABLES Final Resu lt Performing Organization Address City/[facility]/ZIP Co de Phone Number [facility] [address] [place] [address], [place] [phone] * (ABNORMAL) Parathyroid hormone intact (08/21/2024 6:56 AM EDT) PTH 357.0(H) 18.5 - 88.0 pcg/mL LAB CHEMISTRY METHOD 08/21/2024 9:36 AM EDT [facility] Blood Venous blood specimen / Unknown Venipuncture / Unknown 08/21/2024 6:56 AM EDT 08/21/2024 7:42 AM EDT Tobin Alfaro MD LAB BLOOD ORDERABLES Final Resu lt Performing Organization Address [facility]/ZIP Co de Phone Number [facility] [address] [place] [address], [place] [phone] * Magnesium (08/21/2024 6:56 AM EDT) Only the most recent of2 resultswithin the time period is included. [facility] Magnesium 2.4 1.9 - 2.6 mg/dL LAB CHEMISTRY METHOD 08/21/2024 8:27 AM EDT [facility] Blood Venous blood specimen / Unknown Venipuncture / Unknown 08/21/2024 6:56 AM EDT 08/21/2024 7:42 AM EDT Sonia Upton MD LAB BLOOD ORDERABLES Final Resul t Performing Organization Address [facility] de Phone Number [facility] [address] [place] [address], [place] [phone] * (ABNORMAL) Basic metabolic panel (08/21/2024 6:56 AM EDT) Only the most recent of2 resultswithin the time period is included. [facility] Sodium 142 133 - 145 mmol/L LAB CHEMISTRY METHOD 08/21/2024 8:31 AM EDT [facility] Potassium 3.8 3.5 - 5.5 mmol/L LAB CHEMISTRY METHOD 08/21/2024 8:31 AM EDT [facility] Chloride 109 96 - 110 mmol/L LAB CHEMISTRY METHOD 08/21/2024 8:31 AM EDT [facility] CO2 25 21 - 32 mmol/L LAB CHEMISTRY METHOD 08/21/2024 8:31 AM EDT [facility] Anion Gap 8 3 - 11 LAB CHEMISTRY METHOD 08/21/2024 8:31 AM EDT [facility] Glucose 118(H) 70 - 100 mg/dL LAB CHEMISTRY METHOD 08/21/2024 8:31 AM EDT [facility] BUN 27(H) 5 - 25 mg/dL LAB CHEMISTRY METHOD 08/21/2024 8:[facility] Creatinine 4.22(H) 0.70 - 1.30 mg/dL LAB CHEMISTRY METHOD 08/21/2024 8:31 AM EDT [facility] eGFR 16(L) >=60 mL/min/1. 73m2 LAB CHEMISTRY METHOD 08/21/2024 8:31 AM EDT [facility] Comment:Calculation based on the??Chronic Kidney Disease Epidemiology Collaboration (CKD-EPI) equation refit??without adjustment for race. BUN/Creatinine Ratio 6.4 LAB CHEMISTRY METHOD 08/21/2024 8:31 AM [facility] Calcium 8.3(L) 8.5 - 10.5 mg/dL LAB CHEMISTRY METHOD 08/21/2024 8:31 AM EDT [facility] Blood Venous blood specimen / Unknown Venipuncture / Unknown 08/21/2024 6:56 AM EDT 08/21/2024 7:42 AM EDT Sonia Upton MD LAB BLOOD ORDERABLES Final Resul t [facility] [address] [place] [address], * Yellow urine no additive (08/20/2024 3:20 AM EDT) Extra Tube Hold for add-ons. 08/20/2024 6:01 AM EDT [facility] Comment:Auto resulted. Urine Urine specimen obtained by clean catch procedure / Unknown 08/20/2024 3:20 AM EDT 08/20/2024 4:14 AM EDT Owen Waggoner MD LAB URINE ORDERABLES Final Result Performing Organization Address City/[facility]/ZIP Co de Phone Number [facility] [address] [place] [address], [place] [phone] * Creatinine, urine, random (08/20/2024 3:20 AM EDT) Creatinine, Urine 201.0 mg/dL LAB CHEMISTRY METHOD 08/20/2024 4:50 AM EDT [facility] Urine Urine specimen obtained by clean catch procedure / Unknown Non-blood Collection / Unknown 08/20/2024 3:20 AM EDT 08/20/2024 4:14 AM EDT Owen Waggoner MD LAB URINE ORDERABLES Final Result Performing Organization Address [facility]/ZIP Co de Phone Number [facility] [address] [place] [address], [place] [phone] * ECG 12 lead (08/20/2024 1:23 AM EDT) Ventricular Rate ECG 108 BPM GEMUSE Atrial Rate 108 BPM GEMUSE P-R Interval 158 ms GEMUSE QRS Duration 106 ms GEMUSE Q-T Interval 384 ms GEMUSE QTc 514 ms GEMUSE P Wave [place] 28 degrees GEMUSE R [place] -29 degrees GEMUSE T [place] 106 degrees GEMUSE ECG Interpretation Sinus tachycardia Possible Left atrial enlargement Incomplete right bundle branch block Left ventricular hypertrophy T wave abnormality, consider lateral ischemia Abnormal ECG No previous ECGs available Confirmed by MD Dashawn, Owen ([id number]) on 08/21/2024 1:12:55 AM GEMUSE 08/20/2024 1:23 AM EDT 08/21/2024 1:12 AM EDT Owen Waggoner MD ECG ORDERABLES Final Resul t Performing Organization Address City/[facility]/ZIP Co de Phone Number G[facility] * CT Abdomen Pelvis wo Contrast (08/19/2024 9:17 PM EDT) Anatomical Region Laterality Modality Body Computed Tomogra phy 08/19/2024 10:3 5 PM EDT Impressions 08/19/2024 10:35 PM EDT 1. No acute inflammatory process identified within the abdomen or pelvis. No radiopaque renal calculi, hydronephrosis, or hydroureter. This document has been electronically signed by: Jesus Alberto Huggins MD on 08/19/2024 22:35:27 Narrative 08/19/2024 10:35 PM EDT INDICATION: MIGNON, hematuria CT abdomen and pelvis without contrast Comparison: None Findings: No consolidation or effusion. Low-attenuation left adrenal adenomas measuring up to 1.7 cm in maximum axial dimension are present. The gallbladder and solid organs are otherwise unremarkable in appearance. No radiopaque renal calculi. No hydronephrosis or hydroureter. 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 No renal stones. No bowel obstruction, pneumoperitoneum, or pneumatosis. Pelvic contents unremarkable. No bladder wall thickening. Normal appendix. The bones are intact. Procedure Note Jesus Alberto Huggins MD - 08/19/2024 INDICATION: MIGNON, hematuria CT abdomen and pelvis without contrast Comparison: None Findings: No consolidation or effusion. Low-attenuation left adrenal adenomas measuring up to 1.7 cm in maximum axial dimension are present. The gallbladder and solid organs are otherwise unremarkable in appearance. No radiopaque renal calculi. No hydronephrosis or hydroureter. 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 No renal stones. No bowel obstruction, pneumoperitoneum, or pneumatosis. Pelvic contents unremarkable. No bladder wall thickening. Normalappendix. The bones are intact. IMPRESSION: 1. No acute inflammatory process identified within the abdomen orpelvis. No radiopaque renal calculi, hydronephrosis, or hydroureter. This document has been electronically signed by: Jesus Alberto Huggins MD on 08/19/2024 22:35:27 Tarah COBOS [facility] CT PROCEDURES Final Result * Uric acid (08/19/2024 4:32 PM EDT) Uric Acid 7.1 3.7 - 9.2 mg/dL LAB CHEMISTRY METHOD 08/19/2024 11:53 PM EDT [facility] Blood Venous blood specimen / Unknown Venipuncture / Unknown 08/19/2024 4:32 PM EDT 08/19/2024 5:35 PM EDT Owen Waggoner MD LAB BLOOD ORDERABLES Final Result Performing Organization Address City/[facility]/ZIP Co de Phone Number [facility] [address] [place] [address], [place] [phone] * Phosphorus (08/19/2024 4:32 PM EDT) [facility] Phosphorus 3.7 2.5 - 4.5 mg/dL LAB CHEMISTRY METHOD 08/19/2024 11:53 PM EDT [facility] Blood Venous blood specimen / Unknown Venipuncture / Unknown 08/19/2024 4:32 PM EDT 08/19/2024 5:35 PM EDT Owen Waggoner MD LAB BLOOD ORDERABLES Final Result Performing Organization Address [facility]/ZIP Co de Phone Number [facility] [address] [place] [address], [place] [phone] * (ABNORMAL) Urinalysis with reflex microscopic and culture (08/19/2024 4:29 PM EDT) [facility] Specific [place] Urine 1.035(H) 1.003 - 1.030 LAB URINALYSIS - AUTOMATED METHOD 08/19/2024 6:08 PM EDT [facility] pH, Urine 6.0 5.0 - 8.0 pH LAB URINALYSIS - AUTOMATED METHOD 08/19/2024 6:08 PM EDT [facility] Leukocytes, Urine Negative Negative LAB URINALYSIS - AUTOMATED METHOD 08/19/2024 6:08 PM EDT [facility] Nitrite, Urine Negative Negative LAB URINALYSIS - AUTOMATED METHOD 08/19/2024 6:08 PM [facility] Protein, Urine >=1000(A) <=Trace mg/dL LAB URINALYSIS - AUTOMATED METHOD 08/19/2024 6:08 PM [facility] Glucose, Urine 500(A) Negative mg/dL LAB URINALYSIS - AUTOMATED METHOD 08/19/2024 6:08 PM [facility] Ketones, Urine Trace(A) Negative mg/dL LAB URINALYSIS - AUTOMATED METHOD 08/19/2024 6:08 PM [facility] Urobilinogen , Urine 0.2 0.2 - 1.0 mg/dL LAB URINALYSIS - AUTOMATED METHOD 08/19/2024 6:08 PM [facility] Bilirubin, Urine Negative Negative LAB URINALYSIS - AUTOMATED METHOD 08/19/2024 6:08 PM [facility] Blood, Urine Moderate(A) Negative LAB URINALYSIS - AUTOMATED METHOD 08/19/2024 6:08 PM [facility] RBC, Urine 10.0(H) 0 - 4 /HPF LAB URINALYSIS - AUTOMATED METHOD 08/19/2024 6:08 PM [facility] WBC, Urine 11.5(H) 0 - 4 /HPF LAB URINALYSIS - AUTOMATED METHOD 08/19/2024 6:08 PM [facility] Squamous Epithelial, Urine 30 0 - 60 /LPF LAB URINALYSIS - AUTOMATED METHOD 08/19/2024 6:08 PM [facility] Bacteria, Urine Few(A) Negative /HPF LAB URINALYSIS - AUTOMATED METHOD 08/19/2024 6:08 PM [facility] Hyaline Casts, Urine 5.0(H) 0 - 3 /LPF LAB URINALYSIS - AUTOMATED METHOD 08/19/2024 6:08 PM [facility] Other Casts, Urine 10-20 Fine Granular casts. 2-5 Coarse Granular casts. Rare Waxy casts. /LPF LAB URINALYSIS - AUTOMATED METHOD 08/19/2024 6:08 PM EDT [facility] Yeast, Urine Present(A) None /HPF LAB URINALYSIS - AUTOMATED METHOD 08/19/2024 6:08 PM EDT [facility] Urine Urine specimen obtained by clean catch procedure / Unknown Non-blood Collection / Unknown 08/19/2024 4:29 PM EDT 08/19/2024 5:34 PM EDT us Kole Daley MD LAB URINE ORDERABLES Final Resu lt Performing Organization Address City/[facility]/ZIP Co de Phone Number [facility] [address] [place] [address], [place] [phone] * Reyna urine culture tube (08/19/2024 4:29 PM EDT) Extra Tube Hold for add-ons. 08/19/2024 7:01 PM EDT [facility] Comment:Auto resulted. Urine Urine specimen obtained by clean catch procedure / Unknown Non-blood Collection / Unknown 08/19/2024 4:29 PM EDT 08/19/2024 5:34 PM EDT us Kole Daley MD LAB URINE ORDERABLES Final Resu lt [facility] [address] [place] [address], [place] [phone] * Culture urine (08/19/2024 4:29 PM EDT) Culture, Urine No growth 08/20/2024 2:17 PM EDT [facility] Urine Urine specimen obtained by clean catch procedure / Unknown Non-blood Collection / Unknown 08/19/2024 4:29 PM EDT 08/19/2024 6:08 PM EDT Kole Daley MD LAB MICROBIOLOGY - GENERAL ORDOscar PATEL Final Result [facility] [address] [place] [address], [place] [phone] * (ABNORMAL) POC glucose manually resulted (08/18/2024 9:42 AM EDT) Glucose POC 228 mg/dL Blood Capillary blood specimen / Unknown 08/18/2024 9:42 AM EDT Manjula COBOS POINT OF CARE TEST ENTER/EDIT ORDERABLES Final Result * (ABNORMAL) Microalbumin creatinine urine ratio (08/17/2024 4:53 PM EDT) Creatinine, Urine 226.0 mg/dL LAB CHEMISTRY METHOD 08/17/2024 8:10 PM EDT [facility] Microalb, Ur >13,600.0 (H) 0.0 - 29.0 mg/L LAB CHEMISTRY METHOD 08/17/2024 8:10 PM EDT [facility] Microalb/Crea t Ratio >6,018(H) <30 mg/g creat LAB CHEMISTRY METHOD 08/17/2024 8:10 PM EDT [facility] Urine Urine specimen obtained by clean catch procedure / Unknown Non-blood Collection / Unknown 08/17/2024 4:53 PM EDT 08/17/2024 4:53 PM EDT us Manjula COBOS LAB URINE ORDERABLES Final Res ult [facility] [address] [place] [address], [place] [phone] * Sodium, urine, random (08/17/2024 4:53 PM EDT) Sodium, Ur 31 mmol/L LAB CHEMISTRY METHOD 08/19/2024 11:35 PM EDT [facility] Urine Urine specimen obtained by clean catch procedure / Unknown Non-blood Collection / Unknown 08/17/2024 4:53 PM EDT 08/17/2024 4:53 PM EDT us Owen Waggoner MD LAB URINE ORDERABLES Final Result Performing Organization Address City/[facility]/ZIP Co de Phone Number [facility] [address] [place] [address], [place] [phone] * Protein, urine, random (08/17/2024 4:53 PM EDT) [facility] Protein, Urine 2,008 mg/dL LAB CHEMISTRY METHOD 08/19/2024 11:35 PM EDT [facility] Urine Urine specimen obtained by clean catch procedure / Unknown Non-blood Collection / Unknown 08/17/2024 4:53 PM EDT 08/17/2024 4:53 PM EDT us Owen Waggoner MD LAB URINE ORDERABLES Final Result Performing Organization Address [facility] de Phone Number [facility] [address] [place] [address], [place] [phone] * (ABNORMAL) Hemoglobin A1c (08/17/2024 4:51 PM EDT) [facility] Hemoglobin A1C 10.8(H) <6.5 % LAB CHEMISTRY METHOD 08/18/2024 10:13 AM EDT [facility] Mean Bld Glu Estim. 263 mg/dL LAB CHEMISTRY METHOD 08/18/2024 10:13 AM EDT [facility] Blood Venous blood specimen / Unknown 08/17/2024 4:51 PM EDT 08/17/2024 4:51 PM EDT us Manjula COBOS LAB BLOOD ORDERABLES Final Res ult ANDRE ALMARAZ MD ([facility] [address] [place] [address], from Last 3 Months Insurance [facility] [place] [phone] Advance Directives Documents on File Type Date Recorded Patient Data Visualization Developer Expl anation Advance Directives and Living Will 08/21/2024 11:26 AM Leslie Snowden Alex Health Care Proxy * Full Code - Default (Latest Code Status on File) Date Activated Date Inactivated Comments 08/19/2024 11:18 PM 08/21/2024 6:20 PM This is orde r is used when code status has not been discussed with the patient, or code status is otherwise unknown/unconfirmed To update the patient's code status, place a code status order. Do not modify or discontinue any currently active code status orders. Healthcare Agents on File Name Relationship Healthcare Agent Relationshi p Communication Leslie Ruvalcaba Mother First Alternate Health Ca re Agent Shraddha Johnson Sister Second Alternate Health Care Agent Care Teams Hearing Health Technician Relationship Specialty Start Date End Date Elizabeth De La Fuente MD [address] [place] [id number] PCP - General Internal Medicine 04/30/24
--- OUTSIDE RECORDS SUMMARY | 2024-09-24 16:42 | XMS_ITS | Encounter Summary ---
Author Organization Address [address] [place] [address] Care Team Providers Care Gluing Machine Operator Name Role Phone Elizabeth De La Fuente MD Primary Care Provider [phone] Reason for Referral * Consultation (Urgent) - Pending Review Specialty Diagnoses / Procedures Referred By Yokasta t Referred To Contact Nephrology Diagnoses Stage 3 chronic kidney disease, unspecified whether stage 3a or 3b CKD (CMS/HCC V24, CMS/HCC V28) Elizabeth De La Fuente MD [address] [place] [phone] Phone: tel: fax: Referral ID Status Reason Start Date Expiration Date Visits Requested Visits Authorized [id number] Pending Review Specialty Services Required 09/24/2024 09/24/2025 1 1 Reason for Visit * Reason Comments Hospital Follow-up Encounter Details Date Type Department Care Team (Special Care Hospital Contact Info) Description 09/24/2024 9:00 AM EDT Office Visit Adult Medicine [address] [phone] Elizabeth De La Fuente MD [address] [place] [id number] Stage 3 chronic kidney disease, unspecified whether stage 3a or 3b CKD ([facility] V24, [facility] V28) (Primary Dx); HTN (hypertension), benign Social History Tobacco Use Types Packs/Day Years [...] Orientation Straight 08/19/2024 8: 29 PM EDT documented as of this encounter Last Filed Vital Signs Vital Sign Reading [...] Mass Index 35.87 09/24/2024 9:04 AM EDT documented in this encounter Ordered Prescriptions Prescription Sig Dispense Quantity Refills Last Filled Start Date End Date metoprolol tartrate (LOPRESSOR) 25 mg tablet Take 1 tablet (25 mg total) by mouth 2 (two) times a day. 180 each 09/24/2024 12/23/2024 insulin lispro (HumaLOG KwikPen Insulin) 100 unit/mL injection pen Inject into skin 3 times a day before meal <100: 0u, 100-130: 10u, 131-160: 15u, 161-190: 20u, 191-220: 25u, 221-250: 30u, 251-280: 35u,281-310: 40u, 311-340: 45u, 341-370: 48u, and call me. Max dose of 147u per day. 15 mL 2 09/24/2024 insulin glargine (LANTUS SoloStar) 100 unit/mL (3 mL) injection pen Inject 30 Units under the skin at bedtime. 30 mL 1 09/24/2024 04/12/2025 hydrALAZINE (APRESOLINE) 50 mg tablet Take 1 tablet (50 mg total) by mouth 3 (three) times a day. 270 each 09/24/2024 12/23/2024 amLODIPine (NORVASC) 10 mg tablet Take 1 tablet (10 mg total) by mouth 1 (one) time each day. 90 each 09/24/2024 12/23/2024 documented in this encounter Plan of Treatment Upcoming Encounters Date Type Department Care Team (Late st Contact Info) Description 11/25/2024 11:00 AM EDT Office Visit Adult Medicine [address] [phone] Manjula Juárez PA [address] [place] [phone] Scheduled Referrals Name Type Priority Associated Diagnoses Order Schedule Ambulatory referral to Nephrology Outpatient Referral Routine Stage 3 chronic kidney disease, unspecified whether stage 3a or 3b CKD ([facility] V24, [facility] V28) 1 Occurrences starting 09/24/2024 until 09/24/2025 documented as of this encounter Results * (ABNORMAL) Lipid panel with reflex to direct LDL (09/24/2024 9:56 AM EDT) [facility] Signature Cholesterol 309(H) 0 - 200 mg/dL LAB CHEMISTRY METHOD 09/24/2024 1:22 PM EDT [facility] Triglycerides 53 0 - 150 mg/dL LAB CHEMISTRY METHOD 09/24/2024 1:22 PM EDT [facility] HDL 190 >=40 mg/dL LAB CHEMISTRY METHOD 09/24/2024 1:22 PM EDT [facility] LDL Calculated 108(H) 0 - 100 mg/dL LAB CHEMISTRY METHOD 09/24/2024 1:22 PM EDT [facility] VLDL Cholesterol Jordan 10.6 mg/dL LAB CHEMISTRY METHOD 09/24/2024 1:22 PM EDT [facility] Non HDL Chol. (LDL+VLDL) 119 <145 mg/dL LAB CHEMISTRY METHOD 09/24/2024 1:22 PM T [facility] Chol/HDL Ratio 1.6 0.0 - 4.4 LAB CHEMISTRY METHOD 09/24/2024 1:22 PM T [facility] Blood Venous blood specimen / Unknown Venipuncture / Unknown 09/24/2024 9:56 AM EDT 09/24/2024 9:56 AM EDT us Elizabeth De La Fuente MD LAB BLOOD ORDERABLES Final Resul t [facility] [address] [place] [address], [place] [phone] * (ABNORMAL) Comprehensive metabolic panel (09/24/2024 9:56 AM EDT) Sodium 140 133 - 145 mmol/L LAB CHEMISTRY METHOD 09/24/2024 1:22 PM [facility] Potassium 4.2 3.5 - 5.5 mmol/L LAB CHEMISTRY METHOD 09/24/2024 1:22 PM [facility] Chloride 113(H) 96 - 110 mmol/L LAB CHEMISTRY METHOD 09/24/2024 1:22 PM [facility] CO2 20(L) 21 - 32 mmol/L LAB CHEMISTRY METHOD 09/24/2024 1:22 PM [facility] Anion Gap 7 3 - 11 LAB CHEMISTRY METHOD 09/24/2024 1:22 PM [facility] Glucose 52(L) 70 - 100 mg/dL LAB CHEMISTRY METHOD 09/24/2024 1:22 PM [facility] BUN 40(H) 5 - 25 mg/dL LAB CHEMISTRY METHOD 09/24/2024 1:22 PM [facility] Creatinine 5.44(H) 0.70 - 1.30 mg/dL LAB CHEMISTRY METHOD 09/24/2024 1:22 PM [facility] eGFR 12(L) >=60 mL/min/1. 73m2 LAB CHEMISTRY METHOD 09/24/2024 1:22 PM [facility] Comment:Calculation based on the Chronic Kidney Disease Epidemiology Collaboration (CKD-EPI) equation refit without adjustment for race. BUN/Creatinine Ratio 7.4 LAB CHEMISTRY METHOD 09/24/2024 1:22 PM [facility] Calcium 9.1 8.5 - 10.5 mg/dL LAB CHEMISTRY METHOD 09/24/2024 1:22 PM [facility] AST (SGOT) 20 10 - 42 unit/L LAB CHEMISTRY METHOD 09/24/2024 1:22 PM [facility] ALT (SGPT) 25 10 - 60 unit/L LAB CHEMISTRY METHOD 09/24/2024 1:22 PM [facility] Alkaline Phosphatase 110 42 - 121 unit/L LAB CHEMISTRY METHOD 09/24/2024 1:22 PM [facility] Total Protein 5.9(L) 6.0 - 8.0 g/dL LAB CHEMISTRY METHOD 09/24/2024 1:22 PM [facility] Albumin 2.5(L) 3.2 - 5.0 g/dL LAB CHEMISTRY METHOD 09/24/2024 1:22 PM [facility] Total Bilirubin 0.2 0.0 - 1.4 mg/dL LAB CHEMISTRY METHOD 09/24/2024 1:22 PM [facility] Blood Venous blood specimen / Unknown Venipuncture / Unknown 09/24/2024 9:56 AM EDT 09/24/2024 9:56 AM EDT us Elizabeth De La Fuente MD LAB BLOOD ORDERABLES Final Resul t [facility] ([facility]) [facility] [address] [place] [address], documented in this encounter Visit Diagnoses Diagnosis Stage 3 chronic kidney disease, unspecified whether stage 3a or 3b CKD ([facility] V24, [facility] V28)- Primary HTN (hypertension), benign Essential hypertension, benign documented in this encounter Discontinued Medications Medication Sig Discontinue Reason Start Date End Da te amLODIPine (NORVASC) 10 mg tablet Take 1 tablet (10 mg total) by mouth 1 (one) time each day. Reorder 08/21/2024 09/24/2024 insulin glargine (LANTUS SoloStar) 100 unit/mL (3 mL) injection pen Inject 30 Units under the skin at bedtime. Reorder 08/21/2024 09/24/2024 hydrALAZINE (APRESOLINE) 50 mg tablet Take 1 tablet (50 mg total) by mouth 3 (three) times a day. Reorder 08/21/2024 09/24/2024 metoprolol tartrate (LOPRESSOR) 25 mg tablet Take 1 tablet (25 mg total) by mouth 2 (two) times a day. Reorder 08/21/2024 09/24/2024 insulin lispro (HumaLOG KwikPen Insulin) 100 unit/mL injection pen Inject into skin 3 times a day before meal <100: 0u, 100-130: 10u, 131-160: 15u, 161-190: 20u, 191-220: 25u, 221-250: 30u, 251-280: 35u,281-310: 40u, 311-340: 45u, 341-370: 48u, and call me. Max dose of 147u per day. Reorder 08/21/2024 09/24/2024 documented as of this encounter Orders General Supply Count Last Ordered Date First Or dered Date BLOOD PRESSURE MONITOR 1 09/24/2024 documented in this encounter Care Teams Gluing Machine Operator Relationship Specialty Start Date End Date Elizabeth De La Fuente MD [address] [place] [id number] PCP - General Internal Medicine 04/30/24 documented as of this encounter
--- OUTSIDE RECORDS SUMMARY | 2024-09-24 16:42 | XMS_ITS | Clinical Summary ---
Author Organization [employer] Address [address] [facility] [address] [place] [address] Care Team Providers Care Executive Assistant Name Role Phone Unavailable Primary Care Provider Unavailabl e Encounters Date Type Department Care Team Description 08/24/2024 Patient Outreach [facility] [address] [place], [place] [id number] Lloyd Alcantara MD Transition Of Care (Tcm) (HDF unscheduled) 07/24/2024 Population Health Risk Score [facility] ([facility]) Department [address] [phone] Provider, Population Health Generic from Last 3 Months Social History Tobacco Use Types Packs/Day Years Used Date Smoking Tobacco: Never Assessed Sex and Gender Information Value Date Recorded Sex Assigned at Not on file Legal Sex Male 1:51 PM EST Gender Identity Not on file Sexual Orientation Not on file Plan of Treatment Health Maintenance Due Date Last Done Comments CT Colonography 1976 Colonoscopy 1976 Colorectal Cancer Screening 1976 Depression Screening 1976 FIT DNA/Cologuard 1976 FIT 1976 FOBT 1976 HIV Screening 1976 Lipid Panel 1976 SDOH Screening 1976 Sigmoidoscopy 1976 Alcohol/Substance Use Screening 1988 Tobacco Screening 1988 Family Planning (PISQ) 1991 Hepatitis C Screening 1994 Hepatitis B Vaccines (1 of 3 - 19+ 3-dose series) 1995 COVID-19 Vaccine ( - season) 2024 Influenza Vaccine (#1) 2024 9, 01/30/2018, 12/15/2016, Additional history exists DTaP/Tdap/Td Vaccines (2 - Td or Tdap) 04/04/2026 04/04/2016 Zoster Vaccines (1 of 2) 2026 RSV Patients and Patients Aged 60 years or older (1 - 1-dose 75+ series) 2051 HIB Vaccines Aged Out No longer eligi [...] patient's age to complete this topic Meningococcal Vaccine Aged Out No fletcher shruthi eligible based on patient's age to complete this topic Pneumococcal Vaccine: Pediatrics (0 to 5 Years) and At-Risk Patients (6 to 49) Years) Aged Out No longer eligible based on patient's age to complete this topic RSV under 20 months Aged Out No longe r eligible based on patient's age to complete this topic Rotavirus Vaccines Aged Out No longer eligible based on patient's age to complete this topic
--- OUTSIDE RECORDS SUMMARY | 2024-09-24 16:42 | XMS_ITS | Encounter Summary ---
Author Organization [facility] Address [address] [place] [address] Care Team Providers Care Tree Pruner Name Role Phone Elizabeth De La Fuente MD Primary Care Provider [phone] Reason for Visit * Reason Onset Date Comments VNA 08/25/2024 Encounter Details Date Type Department Care Team (Late st Contact Info) Description 08/25/2024 Telephone Adult Medicine [address] [phone] Alea Stahl MA [facility] Social History Tobacco Use Types Packs/Day Years [...] PM EDT documented as of this encounter Progress Notes * Yo Yeh, YASIR - 08/25/2024 4:36 PM EDT DORI Spoke with VNA nurse Referral came for the hospital patient told her he is ok he is in [place] anddoesn't need home care services * Alea Stahl MA - 08/25/2024 4:27 PM EDT [facility] CALL Which [facility] office is calling? [facility] Full name of caller: SHAINA ORTIZ The caller is A nurse Is the caller at the patients home?: no Reason for call: TRYING TO CONNECT WITH THE PATIENT FOR SERVICES PATIENT STATES HE IS IN [facility]. Does caller need an urgent call back? no Was CONTACT Telephone # obtained above?: no Fax #: documented in this encounter Plan of Treatment Upcoming Encounters Date Type Department Care Team (Late st Contact Info) Description 11/25/2024 11:00 AM EDT Office Visit Adult Medicine [address] [phone] Manjula Juárez PA [address] [place] [address] documented as of this encounter Visit Diagnoses Not on filedocumented in this encounter Care Teams Tree Pruner Relationship Specialty Start Date End Date Elizabeth De La Fuente MD [address] [place] [address] PCP - General Internal Medicine 04/30/24 documented as of this encounter
[2024-09-24 17:13] LABS: Basophils Absolute Auto 0.1 X10*3/uL (0.0-0.2); Basophils Percent Auto 1.1 % (0-2); Eosinophils Percent Auto 0.1 % (0-4); Hematocrit 42.8 % (42.0-52.0); Hemoglobin 13.3 g/dl (14.0-18.0); Imm Gran Abs Auto 0.05 X10*3/uL (0.00-0.03); Imm Gran Pct Auto 0.6 % (0.0-0.4); Lymphocytes Absolute Auto 0.4 X10*3/uL (1.2-4.9); Lymphocytes Percent Auto 5.2 % (20-40); MANUAL DIFF FLAG SCAN; Mean Corpuscular HGB Conc 31.1 g/dl (31.0-36.0); Mean Corpuscular Hemoglobin 28.5 pg (27.0-33.0); Mean Corpuscular Volume 91.6 fL (80.0-98.0); Mean Platelet Volume 9.9 fL (9.4-12.4); Monocytes Absolute Auto 0.2 X10*3/uL (0.1-1.2); Monocytes Percent Auto 2.6 % (2-11); Neutrophils Absolute Auto 7.6 x10*3/uL (2.0-8.3); Neutrophils Percent Auto 90.4 % (45-73); PLT CLUMP 1; Red Blood Count 4.67 X10*6/uL (4.60-5.80); Red Cell Distribution Width 13.4 % (11.0-16.0); SCAN SMEAR FLAG 1
--- NOTE | 2024-09-24 17:21 | MHC.EDTECH ---
pt was placed on [facility] d/t rectal temp reading 93.1
--- NOTE | 2024-09-24 17:22 | MHC.EDTECH ---
with verbal orders from MD, pt was given deborah crackers, pudding, and orange juice
[2024-09-24 17:36] LABS: Alanine Aminotransferase 20 U/L (0-40); Albumin Level 3.1 g/dL (3.5-5.0); Alkaline Phosphatase 91 U/L (39-117); Anion Gap 17 (12-20); Aspartate Amino Transferase 26 U/L (5-37); Bilirubin Total 0.2 mg/dL (0.0-1.0); Blood Urea Nitrogen 41 mg/dL (9-16); Calcium 8.9 mg/dL (8.4-10.2); Carbon Dioxide 14 mmol/L (22-29); Chloride 114 mmol/L (96-108); Creatinine Clr Calc Pharmacy 21.7; Estimated Glomerular Filt Rate 12; Glucose Random 119 mg/dL (60-115); Magnesium 2.4 mg/dL (1.6-2.6); Potassium 4.3 mmol/L (3.3-5.1); Sodium 141 mmol/L (135-145); Total Protein 6.1 g/dL (6.5-8.0)
[2024-09-24 18:24] LABS: Platelet Count 330 X10*3/uL (160-400); White Blood Count 8.4 X10*3/uL (4.8-10.8)
[2024-09-24 19:01] LABS: Glucose, Whole Blood 166 mg/dL (60-115)
[2024-09-24 19:05] LABS: Appearance Urine Clear; Color Urine Yellow; Glucose Urine UA 100 mg/dL (Negative); Leukocyte Esterase Urine Negative (Negative); Nitrite Urine Negative (Negative); PH 5.5 (5.0-9.0); UMIC TRIGGER UACC YES; Urine Blood Negative (Negative); Urine Ketones Trace mg/dL (Negative); Urine Protein >=1000 (4+) mg/dL (Neg-Trace)
[2024-09-24 19:12] LABS: Amphetamine Screen Urine Not Detected (Not Detect); Barbiturates, Urine Not Detected (Not Detect); Benzodiazepines Screen Urine Not Detected (Not Detect); Buprenorphine Scr Not Detected (Not Detect); Cannabinoid Screen Urine Not Detected (Not Detect); Cocaine Screen Urine Not Detected (Not Detect); Fentanyl, urine Not Detected (Not Detect); Methadone Screen, Urine Not Detected (Not Detect); Opiate Screen Urine Not Detected (Not Detect); Oxycodone Screen Urine Not Detected (Not Detect); Phencyclidine Screen Urine Not Detected (Not Detect)
[2024-09-24 19:24] LABS: Bacteria Urine None Seen (None Seen); RBC Urine 0-2 /HPF (0-2); Squamous Epithelial Cell Urine 0-2 /HPF (0-2); WBC Urine 0-5 /HPF (0-5)
[2024-09-24 20:05] LABS: SLIDE REVIEW VERIFIED
--- NOTE | 2024-09-24 21:07 | PC.NURSE ---
prosthesis liners removed from bilateral BKA. thick, brown, vaseline-like substance with dried brown debris cleaned with wipes. skin intact. cms intact. liners placed at bedside. BKA sites left DEBBIE, elevated
--- NOTE | 2024-09-24 22:45 | P.HPHOSP_ITS ---
History of Present Illness Date of Service: 09/24/24 Chief Complaint: AMS This is a 49-year-old male with pertinent history of insulin-dependent diabetes mellitus, hypertension, unspecified chronic kidney disease who was brought to the emergency department for evaluation of altered mentation. Patient states he gave himself 20 units of lispro this morning. He was in a hurry and did not eat his breakfast as he was getting his son after school. Patient had a doctor's appointment and also did not check his glucose prior to giving lispro. States he came back home from the appointment and went to sleep tired. Patient was woken up by EMS and he was told that he was unresponsive. D10 was given by EMS and patient's mentation improved. Patient was admitted last month at [facility] for kidney disease but does not know his baseline creatinine over his baseline kidney function. He has yet to follow with a exercise scientist outpatient. As per EMS, his blood glucose was 50. In the emergency department, patient was found to be hypothermic and temporarily replaced on Montserrat Hugger. He denies fever, chills, nausea, vomiting, chest pain, palpitations, shortness of breath, abdominal pain, changes in urinary or bowel habits. In the emergency department, creatinine found to be 5.06 with bicarb 14. Review of Systems 2 Constitutional: Constitutional: Reports fatigue, Reports malaise and Reports weakness Cardiovascular: Cardiovascular: Reports no additional cardiovascular complaints Respiratory: Respiratory: Reports no additional respiratory complaints Gastrointestinal: Gastrointestinal: Reports no additional gastrointestinal complaints Genitourinary: Genitourinary: Reports no additional male genitourinary complaints Neurologic: Reports weakness Endocrine: Endocrine: Reports fatigue [facility] Medical History Hypertension Insulin dependent type 2 diabetes mellitus Pertinent family history: No family history of early CAD Social History Smoked in Last 30 Days: No Use of substances other than those prescribed or required for medical reasons: No Advance Directives: No Advance Directives Information Provided: Yes Do you have a plan to hurt others: No Plan Meds Allergies Allergy/AdvReac Type Severity Reaction Status Date / Time No Known Allergies Allergy Verified 09/24/24 16:21 Home Medications ?Medication ?Instructions ?Recorded ?Confirmed ?Last Taken ?Type amlodipine 10 mg tablet 10 mg PO DAILY 09/24/24 Unknown History hydralazine 50 mg tablet 50 mg PO TID 09/24/24 Unknown History insulin glargine 100 unit/mL (3 30 unit subcut BEDTIME 09/24/24 Unknown History mL) subcutaneous pen (Lantus Solostar U-100 Insulin) insulin lispro 100 unit/mL subcut 09/24/24 Unknown History subcutaneous pen metoprolol tartrate 25 mg tablet 25 mg PO BID 09/24/24 Unknown History Physical Exam 2 Vital Signs and Narrative: Vital Signs: Last Vital Signs Temp 99.3 F 09/24/24 22:09 Pulse 82 09/24/24 22:09 Resp 19 09/24/24 22:09 BP 144/91 H 09/24/24 21:21 Pulse Ox 96 09/24/24 21:21 O2 Del Method Room Air 09/24/24 21:21 BMI result Body Mass Index 42.5 Middle-aged male lying in bed in no distress Neck supple, no JVD Regular rate and rhythm, S1-S2 heard Regular breath sounds bilaterally, no wheezing or crackles appreciated Abdomen soft nontender, no guarding, no rigidity Patient is awake, alert and oriented to self, place, time and person ; no focal motor deficit Psych: Normal mood No pedal edema Results Labs 09/24/24 17:04 09/24/24 17:04 Labs: Laboratory Results - last 24 hr 09/24/24 09/24/24 09/24/24 16:16 17:04 18:54 MCV 91.6 MCH 28.5 MCHC 31.1 RDW 13.4 Plt Count 330 MPV 9.9 Immature Gran % (Auto) 0.6 H Neut % (Auto) 90.4 H Lymph % (Auto) 5.2 L [place] % (Auto) 2.6 Eos % (Auto) 0.1 Baso % (Auto) 1.1 Lymph # (Auto) 0.4 L [place] # (Auto) 0.2 Eos # (Auto) 0.0 Baso # (Auto) 0.1 Abs Immat Gran (auto) 0.05 H Absolute Neuts (auto) 7.6 Absolute Nucleated RBC 0.000 Nucleated RBC % (auto) 0.0 Smear Tech's Comments VERIFIED Anion Gap 17 Estim Creat Clear Calc 21.7 Estimated GFR 12 POC Glucose 145 H 166 H Random Glucose 119 H Calcium 8.9 Magnesium 2.4 Total Bilirubin 0.2 AST 26 ALT 20 Alkaline Phosphatase 91 Total Protein 6.1 L Albumin 3.1 L Urine Color Urine Appearance Urine pH Ur Specific [place] Urine Protein Urine Glucose (UA) Urine Ketones Urine Blood Urine Nitrite Ur Leukocyte Esterase Urine RBC Urine WBC Ur Squamous Epith Cells Urine Bacteria Hyaline Casts Urine Opiates Screen Ur Buprenorphine Scrn Ur Oxycodone Screen Urine Methadone Screen Urine Fentanyl Screen Ur Barbiturates Screen Ur Phencyclidine Scrn Ur Amphetamines Screen U Benzodiazepines Scrn Urine Cocaine Screen U Marijuana (THC) Screen 09/24/24 18:57 MCV MCH MCHC RDW Plt Count MPV Immature Gran % (Auto) Neut % (Auto) Lymph % (Auto) [place] % (Auto) Eos % (Auto) Baso % (Auto) Lymph # (Auto) [place] # (Auto) Eos # (Auto) Baso # (Auto) Abs Immat Gran (auto) Absolute Neuts (auto) Absolute Nucleated RBC Nucleated RBC % (auto) Smear Tech's Comments Anion Gap Estim Creat Clear Calc Estimated GFR POC Glucose Random Glucose Calcium Magnesium Total Bilirubin AST ALT Alkaline Phosphatase Total Protein Albumin Urine Color Yellow Urine Appearance Clear Urine pH 5.5 Ur Specific [place] 1.020 Urine Protein >=1000 (4+) H Urine Glucose (UA) 100 H Urine Ketones Trace Urine Blood Negative Urine Nitrite Negative Ur Leukocyte Esterase Negative Urine RBC 0-2 Urine WBC 0-5 Ur Squamous Epith Cells 0-2 Urine Bacteria None Seen Hyaline Casts 3-5 Urine Opiates Screen Not Detected Ur Buprenorphine Scrn Not Detected Ur Oxycodone Screen Not Detected Urine Methadone Screen Not Detected Urine Fentanyl Screen Not Detected Ur Barbiturates Screen Not Detected Ur Phencyclidine Scrn Not Detected Ur Amphetamines Screen Not Detected U Benzodiazepines Scrn Not Detected Urine Cocaine Screen Not Detected U Marijuana (THC) Screen Not Detected Assessment and Plan (1) Hypoglycemia: Status: Acute (2) Hypothermia: Status: Acute (3) Renal failure: Status: Acute Plan This is a 49-year-old male with pertinent history of insulin-dependent diabetes mellitus, unspecified chronic kidney disease, hypertension who was brought to the emergency department for evaluation of altered mentation. #. Acute metabolic encephalopathy in the setting of hypoglycemia: Resolved #. Hypoglycemia in a patient with insulin-dependent diabetes mellitus: Resolved. Closely monitor glucose levels. May need to reduce insulin dosage due to decreased insulin clearance in the setting of kidney dysfunction. Monitor and titrate basal bolus insulin. #. Hypothermia due to hypoglycemia: Resolved #. Elevated creatinine: Unknown baseline. MIGNON versus progression of CKD. Renal ultrasound pending. Given IV crystalloids in the ER. Noted UA with +4 proteinuria. Consulted Nephrology, appreciate assistance #. Metabolic acidosis in the setting of kidney disease #. Hypertension: Continue home antihypertensives Med rec pending DVT prophylaxis: Lovenox Full code Admit as inpatient and will require two night minimum hospital stay for monitoring of kidney function, blood glucose levels (as above), which is not possible in a lesser acute setting. Quality Stroke Does the patient have a stroke diagnosis?: No VTE Prior VTE?: No VTE Risk Level:: Medical - moderate - high VTE Device Contraindication: Treatment Not Indicated VTE Drug Contraindication: N/A - Med Ordered
[2024-09-24 23:00] LABS: Venous Blood Gas Refer to POC result
[2024-09-24 23:01] LABS: Glucose, Whole Blood 153 mg/dL (60-115); VBG Base Excess -7.7 mmol/L; VBG HCO3 15 mmol/L (22-26); VBG pCO2 24 mmHg; VBG pH 7.39 (7.32-7.43); VBG pO2 95 mmHg
[2024-09-24] MEDS: Sodium Bicarbonate 650 MG TABLET PO (23:11)
[2024-09-24] MEDS: Enoxaparin Sodium 30 MG/0.3 ML SYRINGE SUBCUT (23:11)
[2024-09-24] MEDS: Insulin Lispro 100 UNIT/ML 3 ML VIAL SUBCUT (23:12)
[2024-09-25] VITALS: BP 145/91; PULSE 99; RESP 20; TEMP 37.4; O2SAT 96
[2024-09-25 03:11] LABS: Glucose, Whole Blood 144 mg/dL (60-115)
--- NOTE | 2024-09-25 04:32 | PC.NURSE ---
soiled prosthetic liners cleaned, placed in plastic bag at bedside
[2024-09-25 04:44] VITALS: BP 148/89; PULSE 97; RESP 16; TEMP 37.5; O2SAT 96
[2024-09-25 07:11] LABS: Glucose, Whole Blood 165 mg/dL (60-115)
[2024-09-25 07:17] LABS: MANUAL DIFF FLAG NO
[2024-09-25] MEDS: Insulin Lispro 100 UNIT/ML 3 ML VIAL SUBCUT ×2 (07:22→11:00)
[2024-09-25] MEDS: Sodium Bicarbonate 650 MG TABLET PO (07:23)
[2024-09-25 07:45] LABS: Anion Gap 15 (12-20); Basophils Absolute Auto 0.1 X10*3/uL (0.0-0.2); Basophils Percent Auto 0.3 % (0-2); Blood Urea Nitrogen 43 mg/dL (9-16); Calcium 8.7 mg/dL (8.4-10.2); Carbon Dioxide 18 mmol/L (22-29); Chloride 111 mmol/L (96-108); Eosinophils Percent Auto 0.1 % (0-4); Estimated Glomerular Filt Rate 11; Glucose Random 175 mg/dL (60-115); Hematocrit 36.7 % (42.0-52.0); Hemoglobin 12.6 g/dl (14.0-18.0); Imm Gran Pct Auto 0.6 % (0.0-0.4); Lymphocytes Absolute Auto 1.3 X10*3/uL (1.2-4.9); Lymphocytes Percent Auto 7.3 % (20-40); Mean Corpuscular HGB Conc 34.3 g/dl (31.0-36.0); Mean Corpuscular Hemoglobin 29.4 pg (27.0-33.0); Mean Corpuscular Volume 85.5 fL (80.0-98.0); Monocytes Absolute Auto 0.8 X10*3/uL (0.1-1.2); Monocytes Percent Auto 4.8 % (2-11); Neutrophils Absolute Auto 15.1 x10*3/uL (2.0-8.3); Neutrophils Percent Auto 86.9 % (45-73); Platelet Count 380 X10*3/uL (160-400); Potassium 4.2 mmol/L (3.3-5.1); Red Blood Count 4.29 X10*6/uL (4.60-5.80); Red Cell Distribution Width 13.4 % (11.0-16.0); Sodium 140 mmol/L (135-145); White Blood Count 17.4 X10*3/uL (4.8-10.8)
[2024-09-25 07:55] VITALS: BP 141/82; PULSE 95; RESP 16; TEMP 37.1; O2SAT 95
[2024-09-25] MEDS: 0.9 % Sodium Chloride Flush 3 ML SYRINGE IVFLUSH (08:02)
[2024-09-25] MEDS: amLODIPine Besylate 10 MG TABLET PO (08:55)
[2024-09-25] MEDS: Metoprolol Tartrate 25 MG TABLET PO (08:55)
--- NOTE | 2024-09-25 09:43 | PHA.MEDREC ---
Addendum entered by Richmond Diego 09/25/24 10:09: reviewed Original Note: Pharmacy Consult ? Medication Reconciliation Pharmacy has completed the medication reconciliation. Spoke with patient and he was able to confirm his medications. Pt confirmed his Lantus and confirmed he just recently restarted taking that again injecting 10-15 units daily depending on when he check his Blood Sugar levels in the morning.
--- NOTE | 2024-09-25 10:01 | P.CONNP_ITS ---
History of Present Illness Reason for Consult Consult date: 09/25/24 Chief Complaint Chief complaint: Ams History of Present Illness Narrative: Patient is a 49 y/o male with longstanding, poorly controlled diabetes mellitus for 20 years, bilateral BKA, HTN, CKD of unknown baseline. Presented 09/24 with AMS after giving himself 20 units of lispro in the morning and skipping breakfast, was subsequently found unresponsive by EMS and responded to D10. On presentatoin his creatinine was 5.06, bicarb 14. No creatinine available since 2018, which ws normal at that time. Nephrology consulted for MIGNON/renal failure. creatinine 5.49 today, unknown baseline patient is making urine large proteinuria, negative drug screen renal ultrasound mild right hdyro, otherwise unremarkable patient reports he feels well now denies chest pain, shortness of breath, abdominal pain, flank pain reports making urine without difficulty/discomfort reports he does not smoke or use drugs, only occasional six-pack socially but stopped this after learning he had kidney disease during a hospital admission to [facility] a few months ago reports diabetes has been poorly controlled for some time, health insurance lapsed so then had to ration his insulin reports grandmother had diabetes and eventually went on dialysis for some time reports father had kidney disease and heart disease from which he - does not think he had diabetes but unsure of specific renal issue Review of Systems Constitutional: Reports no additional constitutional complaints Cardiovascular: Denies chest pain, Denies leg edema, Denies lightheadedness and Denies dyspnea Respiratory: Denies cough and Denies dyspnea Gastrointestinal: Denies abdominal pain, Denies diarrhea, Denies nausea and Denies vomiting Genitourinary: Denies hematuria, Denies oliguria, Denies dysuria and Denies flank pain Musculoskeletal: Denies back pain, Denies arthralgias and Denies muscle cramps Skin/Breast: Denies rash Denies tremor(s) PMFSH Past Medical History Medical History Hypertension Insulin dependent type 2 diabetes mellitus Social History Social History Smoked in Last 30 Days: No Use of substances other than those prescribed or required for medical reasons: No Advance Directives: No Advance Directives Information Provided: Yes Do you have a plan to hurt others: No Plan Meds Allergies Allergy/AdvReac Type Severity Reaction Status Date / Time No Known Allergies Allergy Verified 09/24/24 16:21 Active Medications: Current Medications Acetaminophen (Acetaminophen 325 Mg Tablet) 650 mg PO Q6H PRN PRN Reason: Pain, Mild 1-3,fever,headache Amlodipine Besylate (Amlodipine Besylate 10 Mg Tablet) 10 mg PO DAILY [facility]; Protocol Last Admin: 09/25/24 08:55 Dose: 10 mg Calcium Carbonate (Calcium Carbonate 750 Mg Tab.Chew) 750 mg PO Q4H PRN PRN Reason: Heartburn Dextrose (Dextrose 50 % 25 Gm/50 Ml Syringe) 25 gm IVPUSH Q15M PRN; Protocol PRN Reason: per Hypoglycemia Standing Ord. Enoxaparin Sodium (Enoxaparin Sodium 30 Mg/0.3 Ml Syringe) 30 mg SUBCUT Q24H [facility] Last Admin: 09/24/24 23:11 Dose: 30 mg Glucose (Glucose Gel 15 Gm Gel..Gram.) 15 gm PO Q15M PRN; Protocol PRN Reason: per Hypoglycemia Standing Ord. Insulin Human Lispro (Insulin Lispro 100 Unit/Ml 3 Ml Vial) 0 unit SUBCUT Q4H [facility]; Protocol Last Admin: 09/25/24 07:22 Dose: 2 unit Magnesium Hydroxide (Milk Of Magnesia 30 Ml Oral.Susp) 30 ml PO DAILY PRN PRN Reason: Constipation Melatonin (Melatonin 3 Mg Tablet) 6 mg PO BEDTIME PRN PRN Reason: Insomnia Metoprolol Tartrate (Metoprolol Tartrate 25 Mg Tablet) 25 mg PO BID [facility]; Protocol Last Admin: 09/25/24 08:55 Dose: 25 mg Ondansetron HCl (Ondansetron Hcl 4 Mg/2 Ml Vial) 4 mg IVPUSH Q8H PRN PRN Reason: Nausea and Vomiting Sodium Bicarbonate (Sodium Bicarbonate 650 Mg Tablet) 650 mg PO TID [facility] Last Admin: 09/25/24 07:23 Dose: 650 mg Sodium Chloride (0.9 % Sodium Chloride Flush 3 Ml Syringe) 3 ml IVFLUSH QSHIFT [facility] Last Admin: 09/25/24 08:02 Dose: 3 ml Home Medications ?Medication ?Instructions ?Recorded ?Confirmed ?Last Taken ?Type amlodipine 10 mg tablet 10 mg PO DAILY 09/24/24 09/25/24 09/24/24 History hydralazine 50 mg tablet 50 mg PO TID 09/24/24 09/25/24 09/24/24 History insulin glargine 100 unit/mL (3 10 - 15 unit subcut BEDTIME 09/24/24 09/25/24 09/24/24 History mL) subcutaneous pen (Lantus Solostar U-100 Insulin) insulin lispro 100 unit/mL See Protocol subcut TIDAC 09/24/24 09/25/24 09/24/24 History subcutaneous pen metoprolol tartrate 25 mg tablet 25 mg PO BID 09/24/24 09/25/24 09/24/24 History Vitamin D3 1 tab PO DAILY 09/25/24 09/25/24 3 Days Ago History ~09/22/24 ascorbic acid (vitamin C) 500 mg 500 mg PO DAILY 09/25/24 09/25/24 3 Days Ago History tablet (Vitamin C) ~09/22/24 magnesium oxide 400 mg PO DAILY 09/25/24 09/25/24 3 Days Ago History ~09/22/24 multivitamin 1 tab PO DAILY 09/25/24 09/25/24 3 Days Ago History ~09/22/24 potassium chloride 1 tab PO DAILY 09/25/24 09/25/24 3 Days Ago History ~09/22/24 Physical Exam Vital Signs: Last Vital Signs Temp 98.8 F 09/25/24 07:55 Pulse 95 09/25/24 07:55 Resp 16 09/25/24 07:55 BP 141/82 H 09/25/24 07:55 Pulse Ox 95 09/25/24 07:55 O2 Del Method Room Air 09/25/24 07:55 BMI result Body Mass Index 42.5 Const General: no acute distress, alert and awake Resp Effort & Inspection: normal respiratory effort and able to speak in complete sentences Auscultation: clear to auscultation bilaterally Cardio Rate: regular rate Rhythm: regular rhythm Heart sounds: S1 normal heart sound present and S2 normal heart sound present GI Palpation (GI): Soft to palpation and nontender General: Yes no CVA tenderness Back/Spine/Pelvis Back: no CVA tenderness Skin Rashes: no rashes Extrem General: No edema Results Lab Results 09/25/24 07:09 09/25/24 07:09 Lab results: Chemistry 09/24/24 09/25/24 17:04 07:09 Sodium 141 140 Potassium 4.3 4.2 Carbon Dioxide 14 L 18 L BUN 41 H 43 H Creatinine 5.06 H* 5.49 H* Calcium 8.9 8.7 Hematology 09/24/24 09/25/24 17:04 07:09 WBC 8.4 17.4 H Hgb 13.3 L 12.6 L Plt Count 330 380 Urinalysis 09/24/24 18:57 Urine Color Yellow Urine Appearance Clear Urine pH 5.5 Ur Specific [place] 1.020 Urine Protein >=1000 (4+) H Urine Glucose (UA) 100 H Urine Ketones Trace Urine Blood Negative Urine Nitrite Negative Ur Leukocyte Esterase Negative Urine RBC 0-2 Urine WBC 0-5 Ur Squamous Epith Cells 0-2 Hyaline Casts 3-5 Assessment and Plan (1) CKD (chronic kidney disease) stage 4, GFR 15-29 ml/min: Status: Acute (2) Hypertension: Qualifiers: Hypertension type: primary hypertension Qualified Code(s): I10 - Essential (primary) hypertension Status: Acute (3) Hypoglycemia: Status: Acute Plan Most likely baseline renal disease given longstanding, poorly controlled diabetes with target organ damage and large amount of proteinuria will check serum and urine immunofixation to rule out underlying systemic disease outside of DM that may be precipitating CKD will check vitamin D and PTH levels advised no NSAIDs, no smoking, alcohol discussed importance of low salt in diet, weight loss, adequate hydration, exercise discussed importance of diabetic control in helping to slow the progression of his renal disease advised will see him in the office in 1 week for further evaluation and management Discussed with Dr Zack Kevin Date of Service Date of Service: 09/25/24
--- NOTE | 2024-09-25 10:33 | P.DS_ITS ---
DS: Providers Provider Date of Service: 09/25/24 Date of admission: 09/24/24 22:39 Date of discharge: 09/25/24 Primary care physician: Elizabeth De La Fuente MD Consults: 09/24/24 22:44 Consult to Nephrology Routine Consulting Provider: [facility] Reason for consultation: elevated creatinine DS: Diagnosis Discharge Diagnosis (1) CKD (chronic kidney disease) stage 4, GFR 15-29 ml/min: Status: Acute (2) Hypertension: Status: Acute (3) Hypoglycemia: Status: Acute DS: Summary Hospital Course Hospital Course: admission hpi Chief Complaint: AMS This is a 49-year-old male with pertinent history of insulin-dependent diabetes mellitus, hypertension, unspecified chronic kidney disease who was brought to the emergency department for evaluation of altered mentation. Patient states he gave himself 20 units of lispro this morning. He was in a hurry and did not eat his breakfast as he was getting his son after school. Patient had a doctor's appointment and also did not check his glucose prior to giving lispro. States he came back home from the appointment and went to sleep tired. Patient was woken up by EMS and he was told that he was unresponsive. D10 was given by EMS and patient's mentation improved. Patient was admitted last month at [facility] for kidney disease but does not know his baseline creatinine over his baseline kidney function. He has yet to follow with a women's health care nurse practitioner outpatient. As per EMS, his blood glucose was 50. In the emergency department, patient was found to be hypothermic and temporarily replaced on Montserrat Hugger. He denies fever, chills, nausea, vomiting, chest pain, palpitations, shortness of breath, abdominal pain, changes in urinary or bowel habits. In the emergency department, creatinine found to be 5.06 with bicarb 14. hospital course: The patient presented with hypoglycemia after administering 20 units of short- acting insulin without eating prior to his doctor's appointment. Blood glucose levels were in the 50s, and he was also found to be hypothermic. Incidentally, he was noted to have an elevated creatinine level of 5.0 mg/dL. There was no reported decrease in urine output as an outpatient, and his last known creatinine was 1.2 mg/dL in October 2022 at [facility]. Hypoglycemia resolved with glucose replacement. Renal failure was managed with intravenous fluids. Creatinine has since increased slightly to 5.49 mg/dL from 5.06 mg/dL. The patient has proteinuria with preserved urine output, and his condition is associated with metabolic acidosis, with an initial bicarbonate level of 14 mEq/L, suggesting a likely chronic process. Nephrology was consulted and has recommended further out patient testing. Hypoglycemia, attributed to insulin administration without food intake, has resolved. Hypothermia, likely secondary to hypoglycemia, has also resolved. The patient also exhibited leukocytosis with a WBC count of 17K, up from 8K the prior day, likely reactive in nature due to hypoglycemia. WBC count has since decreased. Time Attestation Discharge Coordination Time (in mins): 45 Quality: Safe Use of Opioids Does Pt have an Active Cancer Diagnosis on the Problem List?: No Quality: Stroke Does the patient have a stroke diagnosis?: No Physical Exam Vital Signs: Vital Signs: Last Vital Signs Temp 98.8 F 09/25/24 07:55 Pulse 95 09/25/24 07:55 Resp 16 09/25/24 07:55 BP 141/82 H 09/25/24 07:55 Pulse Ox 95 09/25/24 07:55 O2 Del Method Room Air 09/25/24 07:55 BMI result Body Mass Index 42.5 General: AO X 3, no acute distress Resp: CTA bilateral CVS: S1,S2,RRR GI: +BS, NT, no distention Skin: No rash Neuro: motor grossly intact Psych: appropriate affect Const: Other: General: AO X 3, no acute distress Resp: CTA bilateral CVS: S1,S2,RRR GI: +BS, NT, no distention Skin: No rash Neuro: motor grossly intact Psych: appropriate affect DS: Data Data Completed and Pending Labs on day of discharge: Laboratory Results - last 24 hr 09/24/24 09/24/24 09/24/24 16:16 17:04 18:54 WBC 8.4 RBC 4.67 Hgb 13.3 L Hct 42.8 MCV 91.6 MCH 28.5 MCHC 31.1 RDW 13.4 Plt Count 330 MPV 9.9 Immature Gran % (Auto) 0.6 H Neut % (Auto) 90.4 H Lymph % (Auto) 5.[address] [place] % (Auto) 2.6 Eos % (Auto) 0.1 Baso % (Auto) 1.1 Lymph # (Auto) 0.[address] [place] # (Auto) 0.2 Eos # (Auto) 0.0 Baso # (Auto) 0.1 Abs Immat Gran (auto) 0.05 H Absolute Neuts (auto) 7.6 Absolute Nucleated RBC 0.000 Nucleated RBC % (auto) 0.0 Smear Tech's Comments VERIFIED VBG pH VBG pCO2 VBG pO2 VBG HCO3 VBG O2 Saturation VBG Base Excess Sodium 141 Potassium 4.3 Chloride 114 H Carbon Dioxide 14 L Anion Gap 17 BUN 41 H Creatinine 5.06 H* Estim Creat Clear Calc 21.7 Estimated GFR 12 POC Glucose 145 H 166 H Random Glucose 119 H Calcium 8.9 Magnesium 2.4 Total Bilirubin 0.2 AST 26 ALT 20 Alkaline Phosphatase 91 Total Protein 6.1 L Albumin 3.1 L Urine Color Urine Appearance Urine pH Ur Specific [place] Urine Protein Urine Glucose (UA) Urine Ketones Urine Blood Urine Nitrite Ur Leukocyte Esterase Urine RBC Urine WBC Ur Squamous Epith Cells Urine Bacteria Hyaline Casts Urine Opiates Screen Ur Buprenorphine Scrn Ur Oxycodone Screen Urine Methadone Screen Urine Fentanyl Screen Ur Barbiturates Screen Ur Phencyclidine Scrn Ur Amphetamines Screen U Benzodiazepines Scrn Urine Cocaine Screen U Marijuana (THC) Screen 09/24/24 09/24/24 09/25/24 18:57 22:56 03:07 WBC RBC Hgb Hct MCV MCH MCHC RDW Plt Count MPV Immature Gran % (Auto) Neut % (Auto) Lymph % (Auto) [place] % (Auto) Eos % (Auto) Baso % (Auto) Lymph # (Auto) [place] # (Auto) Eos # (Auto) Baso # (Auto) Abs Immat Gran (auto) Absolute Neuts (auto) Absolute Nucleated RBC Nucleated RBC % (auto) Smear Tech's Comments VBG pH 7.39 VBG pCO2 24 VBG pO2 95 VBG HCO3 15 L VBG O2 Saturation 99.0 VBG Base Excess -7.7 Sodium Potassium Chloride Carbon Dioxide Anion Gap BUN Creatinine Estim Creat Clear Calc Estimated GFR POC Glucose 153 H 144 H Random Glucose Calcium Magnesium Total Bilirubin AST ALT Alkaline Phosphatase Total Protein Albumin Urine Color Yellow Urine Appearance Clear Urine pH 5.5 Ur Specific [place] 1.020 Urine Protein >=1000 (4+) H Urine Glucose (UA) 100 H Urine Ketones Trace Urine Blood Negative Urine Nitrite Negative Ur Leukocyte Esterase Negative Urine RBC 0-2 Urine WBC 0-5 Ur Squamous Epith Cells 0-2 Urine Bacteria None Seen Hyaline Casts 3-5 Urine Opiates Screen Not Detected Ur Buprenorphine Scrn Not Detected Ur Oxycodone Screen Not Detected Urine Methadone Screen Not Detected Urine Fentanyl Screen Not Detected Ur Barbiturates Screen Not Detected Ur Phencyclidine Scrn Not Detected Ur Amphetamines Screen Not Detected U Benzodiazepines Scrn Not Detected Urine Cocaine Screen Not Detected U Marijuana (THC) Screen Not Detected 09/25/24 09/25/24 07:08 07:09 WBC 17.4 H RBC 4.29 L Hgb 12.6 L Hct 36.7 L MCV 85.5 D MCH 29.4 MCHC 34.3 RDW 13.4 Plt Count 380 MPV 10.0 Immature Gran % (Auto) 0.6 H Neut % (Auto) 86.9 H Lymph % (Auto) 7.[address] [place] % (Auto) 4.8 Eos % (Auto) 0.1 Baso % (Auto) 0.3 Lymph # (Auto) 1.3 [place] # (Auto) 0.8 Eos # (Auto) 0.0 Baso # (Auto) 0.1 Abs Immat Gran (auto) 0.10 H Absolute Neuts (auto) 15.1 H Absolute Nucleated RBC 0.000 Nucleated RBC % (auto) 0.0 Smear Tech's Comments VBG pH VBG pCO2 VBG pO2 VBG HCO3 VBG O2 Saturation VBG Base Excess Sodium 140 Potassium 4.2 Chloride 111 H Carbon Dioxide 18 L Anion Gap 15 BUN 43 H Creatinine 5.49 H* Estim Creat Clear Calc 20.0 Estimated GFR 11 POC Glucose 165 H Random Glucose 175 H Calcium 8.7 Magnesium Total Bilirubin AST ALT Alkaline Phosphatase Total Protein Albumin Urine Color Urine Appearance Urine pH Ur Specific [place] Urine Protein Urine Glucose (UA) Urine Ketones Urine Blood Urine Nitrite Ur Leukocyte Esterase Urine RBC Urine WBC Ur Squamous Epith Cells Urine Bacteria Hyaline Casts Urine Opiates Screen Ur Buprenorphine Scrn Ur Oxycodone Screen Urine Methadone Screen Urine Fentanyl Screen Ur Barbiturates Screen Ur Phencyclidine Scrn Ur Amphetamines Screen U Benzodiazepines Scrn Urine Cocaine Screen U Marijuana (THC) Screen Discharge Plan Discharge Anticipated Discharge Date/Time: 09/25/24 14:14 Patient Disposition: Home, Self-Care Discharge Diagnosis: MIGNON, hypothermia, hypoglycemia, Referrals: Elizabeth De La Fuente MD [Primary Care Provider] - 1 Week Discharge Medications: Continued amlodipine 10 mg tablet 10 mg PO DAILY hydralazine 50 mg tablet 50 mg PO TID insulin lispro 100 unit/mL insulin pen See Protocol subcut TIDAC Protocol: Insulin Correction Scale Less than or equal to 110 ---- Give (units): 0 111 to 150 Give (units): 0 151 to 200 Give (units): 2 201 to 250 Give (units): 4 251 to 300 Give (units): 6 301 to 350 Give (units): 8 Greater than 350 Give (units): 10 Call MD if Blood Glucose > : 350 metoprolol tartrate 25 mg tablet 25 mg PO BID insulin glargine [Lantus Solostar U-100 Insulin] 100 unit/mL (3 mL) insulin pen 10 - 15 unit subcut BEDTIME multivitamin Tablet 1 tab PO DAILY ascorbic acid (vitamin C) [Vitamin C] 500 mg Tablet 500 mg PO DAILY magnesium oxide 400 mg magnesium Tablet 400 mg PO DAILY Vitamin D3 1 tab PO DAILY potassium chloride 1 tab PO DAILY Discharge Orders: Discharge Order (Routine); Ordered 09/25/24 Ordered By: Sebastián Ambrose Diet: Diabetic diet Activity on Discharge: As tolerated Stand Alone Forms: Patient Portal Discharge page Print Language: Khmer Care Plan Goals: recivery and work up of renal failure Health Concerns: elevated serum creatine, suspected to be chronic metabolic acidosis hypoglycemia leukocytois take insulin as directed and avoid taking if you are not eating Plan of Treatment: follow up with the Nephrology team on outpatient bais Assessment: see above
[2024-09-25 10:50] LABS: Glucose, Whole Blood 204 mg/dL (60-115)
[2024-09-25 11:17] LABS: Parathyroid Hormone Intact 271.8 pg/mL (8.7-77.1)
--- NOTE | 2024-09-25 12:01 | PC.NURSE ---
DCF at the bedside
[2024-09-25 12:41] VITALS: BP 140/79; PULSE 100; RESP 20; O2SAT 95
[2024-09-25 13:35] LABS: Hematocrit 35.7 % (42.0-52.0); Mean Corpuscular HGB Conc 33.6 g/dl (31.0-36.0); Mean Corpuscular Volume 86.2 fL (80.0-98.0); Mean Platelet Volume 9.8 fL (9.4-12.4); Platelet Count 343 X10*3/uL (160-400); Red Blood Count 4.14 X10*6/uL (4.60-5.80); Red Cell Distribution Width 13.5 % (11.0-16.0)
--- NOTE | 2024-09-25 13:47 | MHC.CM.PN ---
pt lives w/son,has no services is independent has own ride lakshmi patel plan home n/s
--- NOTE | 2024-09-25 15:00 | MHC.CM.PN ---
pt dcd home self care
[2024-09-25 16:05] VITALS: BP 135/82; PULSE 98; RESP 16; TEMP 36.8; O2SAT 96
[2024-09-25 16:08] VITALS: BP 135/82; PULSE 98; RESP 16; TEMP 36.8; O2SAT 96
[2024-09-29 15:33] LABS: IgA 166 mg/dL (47-310); IgG 517 mg/dL (600-1640); IgM 42 mg/dL (50-300)
[2024-09-29 17:19] LABS: Vitamin D 25-OH, D2 <4 ng/mL; Vitamin D 25-OH, D3 19 ng/mL; Vitamin D 25-OH, Total 19 ng/mL (30-100)
== END 2024-09-25 14:45 | disposition home or self-care (01) | DRG 420 ==
LOC: HO.ED 22:35 → HO.EDOVER 22:43 → HO.S3 09-25 10:07 → HO.EDOVER 09-25 12:55
PROVIDERS: Family Medicine; Nurse Practitioner Family; Admitting Provider Student in an Organized Health Care Education/Training Program; Emergency Provider Emergency Medicine Emergency Medical Services; PCP Internal Medicine; Visit Provider Internal Medicine
DX: E11.649 Type 2 diabetes mellitus with hypoglycemia without coma (principal); G93.41 Metabolic encephalopathy; N18.4 Chronic kidney disease, stage 4 (severe); N17.9 Acute kidney failure, unspecified; E11.22 Type 2 diabetes mellitus with diabetic chronic kidney disease; E87.20 Acidosis, unspecified; I12.9 Hypertensive chronic kidney disease with stage 1 through stage 4 chronic kidney disease, or unspecified chronic kidney disease; R68.0 Hypothermia, not associated with low environmental temperature; Z89.512 Acquired absence of left leg below knee; Z89.511 Acquired absence of right leg below knee; Z79.4 Long term (current) use of insulin; Z79.899 Other long term (current) drug therapy
CPT/HCPCS: 36415; 76775; 80048; 80053; 80307; 81001; 81003; 82306; 82784; 82803; 82947; 83735; 83970; 85025; 85027; 86334; 93005; 99285; J1650

== ENCOUNTER → 2024-09-24 17:06 | Outpatient (BNV) | payer OTHER, SELFPAY | PROVIDERS: Admitting Provider Student in an Organized Health Care Education/Training Program; Emergency Provider Emergency Medicine Emergency Medical Services; PCP Internal Medicine; Visit Provider Internal Medicine Cardiovascular Disease | DX: R94.31 Abnormal electrocardiogram [ECG] [EKG] (principal); E16.2 Hypoglycemia, unspecified | CPT/HCPCS: 93010 ==

== ENCOUNTER → 2024-09-24 21:35 | Outpatient (BNV) | payer OTHER, SELFPAY | PROVIDERS: Admitting Provider Student in an Organized Health Care Education/Training Program; Emergency Provider Emergency Medicine Emergency Medical Services; PCP Internal Medicine; Visit Provider Radiology Diagnostic Radiology | DX: R94.4 Abnormal results of kidney function studies (principal); R79.89 Other specified abnormal findings of blood chemistry | CPT/HCPCS: 76775 ==

== ENCOUNTER → 2024-09-24 22:39 | Outpatient (BNV) | payer OTHER, SELFPAY | PROVIDERS: Admitting Provider Student in an Organized Health Care Education/Training Program; Emergency Provider Emergency Medicine Emergency Medical Services; PCP Internal Medicine; Visit Provider Nurse Practitioner Family | DX: I12.9 Hypertensive chronic kidney disease with stage 1 through stage 4 chronic kidney disease, or unspecified chronic kidney disease (principal); N18.4 Chronic kidney disease, stage 4 (severe); E16.2 Hypoglycemia, unspecified | CPT/HCPCS: 99222 ==

== ENCOUNTER → 2024-09-24 22:39 | Outpatient (BNV) | payer OTHER, SELFPAY | PROVIDERS: Admitting Provider Student in an Organized Health Care Education/Training Program; Emergency Provider Emergency Medicine Emergency Medical Services; PCP Internal Medicine; Visit Provider Student in an Organized Health Care Education/Training Program | DX: I12.9 Hypertensive chronic kidney disease with stage 1 through stage 4 chronic kidney disease, or unspecified chronic kidney disease (principal); N18.4 Chronic kidney disease, stage 4 (severe); E16.2 Hypoglycemia, unspecified | CPT/HCPCS: 99222; 99239 ==

== ENCOUNTER 2024-10-09 10:15 | Outpatient (AMB) | payer OTHER, SELFPAY ==
--- NOTE | 2024-10-09 10:34 | HO.NEPHOV ---
Vital Signs 10/09/24 10:41 Height 6 ft 3 in Weight 281 lb BMI 35.1 BP 124/80 Blood Pressure Location Lt brachial Position Sitting Pulse 83 Pulse Source Pulse Oximeter Pulse Oximetry (%) 98 Oxygen Delivery Method Room Air Intake Visit Reasons: Seen at [facility] Marketing Development Manager Required: No Accompanied by: Self / Same As Patient Allergies No Known Allergies Allergy (Verified 10/09/24 10:41) HPI Comments Details: 49-year-old male with insulin-dependent diabetes mellitus, hypertension was seen for altered mental status. In the emergency department, patient was found to be hypothermic and temporarily replaced on Montserrat Hugger. He denies fever, chills, nausea, vomiting, chest pain, palpitations, shortness of breath, abdominal pain, changes in urinary or bowel habits. In the emergency department, creatinine found to be 5.06 with bicarb 14. He was admitted and was managed and subsequently managed with supportive care. His grand mother was on HD. His dad had CKD. His uncle was on HD. He denies uremic symptoms. His UO is good. He has no hypoglycemias. [facility] Medical History (Updated 10/09/24 @ 10:55 by Kleber Dixon MD) Hypertension Insulin dependent type 2 diabetes mellitus Surgical History (Updated 10/09/24 @ 10:36 by Polina Moya MA) History of repair of ACL History of leg amputation Family History (Updated 10/09/24 @ 10:39 by Polina Moya MA) Paternal Uncle Diabetes Paternal Grandmother Dialysis patient Social History (Updated 10/09/24 @ 10:39 by Polina Moya MA) Alcohol intake: current Comment: Socially Patient Tobacco Use Status: Never used Tobacco Use of substances other than those prescribed or required for medical reasons: No service: No Review of Systems Const All systems reviewed & are unremarkable except as noted in HPI and below Physical Exam Vital Signs: Last Vital Signs Pulse 83 10/09/24 10:41 BP 124/80 10/09/24 10:41 Pulse Ox 98 10/09/24 10:41 Oxygen Delivery Method Room Air 10/09/24 10:41 BMI result Body Mass Index 35.1 Const General: comfortable and no acute distress Orientation/consciousness: patient oriented x3 HEENT Head: Yes normocephalic Mouth: Normal oral and palatal mucosa present Eyes EOM: EOMs intact bilaterally Neck Neck: Yes supple Resp Auscultation: clear to auscultation bilaterally Cardio Jugular venous distension: no JVD Rate: regular rate GI Palpation (GI): Soft to palpation Auscultation: normal bowel sounds General: Yes no CVA tenderness Back/Spine/Pelvis Back: no CVA tenderness Skin General skin exam: no rashes or lesions noted Neuro General: patient oriented x3 and moves all extremities Extrem General: Yes no pedal edema Results Reviewed Nephrology Results: Hgb 12.0 g/dl (14.0-18.0) L 09/25/24 WBC 14.0 X10*3/uL (4.8-10.8) H 09/25/24 Plt Count 343 X10*3/uL (160-400) 09/25/24 Sodium 140 mmol/L (135-145) 09/25/24 Potassium 4.2 mmol/L (3.3-5.1) 09/25/24 Chloride 111 mmol/L (96-108) H 09/25/24 Carbon Dioxide 18 mmol/L (22-29) L 09/25/24 BUN 43 mg/dL (9-16) H 09/25/24 Creatinine 5.49 mg/dL (0.5-1.4) H* 09/25/24 Calcium 8.7 mg/dL (8.4-10.2) 09/25/24 PTH Intact 271.8 pg/mL (8.7-77.1) H 09/25/24 Urine Protein >=1000 (4+) mg/dL (Neg-Trace) H 09/24/24 Renal US 09/24/24 Assessment & Plan Assessment & Plan (1) CKD (chronic kidney disease) stage 4, GFR 15-29 ml/min: Code(s): N18.4 - Chronic kidney disease, stage 4 (severe) Category: Medical (2) Acute kidney injury superimposed on CKD: Code(s): N17.9 - Acute kidney failure, unspecified; N18.9 - Chronic kidney disease, unspecified Category: Medical (3) Hypertension: Code(s): I10 - Essential (primary) hypertension Category: Medical Qualifiers: Hypertension type: primary hypertension Qualified Code(s): I10 - Essential (primary) hypertension (4) Metabolic acidosis: Code(s): E87.20 - Acidosis, unspecified Category: Medical (5) Secondary hyperparathyroidism (of renal origin): Code(s): N25.81 - Secondary hyperparathyroidism of renal origin Category: Medical (6) Vitamin D deficiency: Code(s): E55.9 - Vitamin D deficiency, unspecified Category: Medical Plan He has advanced CKD and denies uremic symptoms. His BP is at goal. I started him on Vitamin D. He is going to have blood work today. I shall send him for PD education and for transplant education soon. F/U given in 1 week Orders: Orders Immunofixation, Random Urine Today N17.9 - Acute kidney failure, unspecified, N18.9 - Chronic kidney disease, unspecified Creatinine Today N17.9 - Acute kidney failure, unspecified, N18.9 - Chronic kidney disease, unspecified Blood Urea Nitrogen Today N17.9 - Acute kidney failure, unspecified, N18.9 - Chronic kidney disease, unspecified Electrolytes Today N17.9 - Acute kidney failure, unspecified, N18.9 - Chronic kidney disease, unspecified Calcium Today N17.9 - Acute kidney failure, unspecified, N18.9 - Chronic kidney disease, unspecified Protein Creatinine Ratio, Ur Today N17.9 - Acute kidney failure, unspecified, N18.9 - Chronic kidney disease, unspecified Immunofixation Pnl, Serum Today N17.9 - Acute kidney failure, unspecified, N18.9 - Chronic kidney disease, unspecified Medications: New cholecalciferol (vitamin D3) 50 mcg PO DAILY 30 caps 4RF Coding Level of Care Code Est Pt Level 4 (87379) Diagnoses CKD (chronic kidney disease) stage 4, GFR 15-29 ml/min N18.4 Acute kidney injury superimposed on CKD N17.9; N18.9 Primary hypertension I10 Hypertension type: primary hypertension Metabolic acidosis E87.20 Secondary hyperparathyroidism (of renal origin) N25.81 Vitamin D deficiency E55.9
[2024-10-09 10:41] VITALS: BP 124/80; PULSE 83; O2SAT 98; BMI 35.1
--- OUTSIDE RECORDS SUMMARY | 2024-10-09 10:54 | XMS_ITS | Clinical Summary ---
Author Organization [facility] Address [address] [address] Phone Care Team Providers Care Sailmaker Name Role Phone Elizabeth De La Fuente MD Primary Care Provider [phone] Medications amLODIPine (NORVASC) 10 MG tablet Take 10 mg by mouth in the morning. 08/21/2024 5 Active hydrALAZINE 50 MG tablet Take 50 mg by mouth in the morning and 50 mg at noon and 50 mg in the evening. 08/21/2024 5 Active metoprolol tartrate 25 MG tablet Take 25 mg by mouth in the morning and 25 mg in the evening. 08/21/2024 5 Active Encounters Date Type Department Care Team Description 08/21/2024 Orders Only [facility] [address] [address] Charan Villalobos MD from Last 3 Months Family History Medical History Relation Comments Diabetes Father Hypertension Father Relation Status Comments Father Alive Mother Alive Social History Tobacco Use Types Packs/Day Years Used Date Smoking Tobacco: Never Alcohol Use Standard Drinks/Week Comments Yes 0 (1 standard drink = 0.6 oz pure alcohol) Alcoholic Drinks/day: Occasional social drink Sex and Gender Information Value Date Recorded Sex Assigned at Not on file Legal Sex Male 4:48 PM EST Gender Identity Not on file Sexual Orientation Not on file Plan of Treatment Health Maintenance Due Date Last Done Comments Hepatitis B Vaccine (1 of 3 - 19+ 3-dose series) 1995 Pneumococcal Vaccine: Peds ( 0 to 5 Years) and At-Risk Patients (6 to 49 Years) (2 of 2 - PCV) 07/30/2017 07/30/2016 Diabetes: Ophthalmology Exam 06/13/2020 Diabetes: Pedal Pulse Checked 06/13/2020 Diabetes: Sensory Foot Exam 06/13/2020 Diabetes: Visual Foot Exam 06/13/2020 Diabetes: Hemoglobin A1C 11/16/2024 08/17/2024 Influenza Vaccine (Season Ended) 2025 01/16/2019, 01/30/2018, 12/15/2016, Additional history exists Pneumococcal Vaccine: 50+ Years Discontinued 7 Procedures Procedure Name Priority Date/Time Associated Diagnosis Comments ANTI-NEUTROPHILIC CYTOPLASMIC ANTIBODY Routine 08/21/2024 12:21 PM EDT DAMARIS IFA SCREEN W/REFLEX TO TITER AND PATTERN Routine 08/21/2024 12:21 PM EDT IMMUNOFIXATION ELECTROPHORESIS Routine 08/21/2024 6:56 AM EDT IMMUNOFIXATION INTERPRETATION Routine 08/21/2024 6:56 AM EDT EXT RESULT ENTRY Routine 08/21/2024 from Last 3 Months Results * DAMARIS IFA Screen s/Reflex to Titer and Pattern (08/21/2024 12:21 PM EDT) DAMARIS Negative Negative [facility] 08/21/2024 12:2 1 PM EDT 08/21/2024 12:41 PM EDT us Charan Villalobos MD LAB BLOOD ORDERABLES Final Resul t GANESH [facility] [address] [place] [address] * Anti-neutrophilic cytoplasmic antibody (08/21/2024 12:21 PM EDT) Myeloperoxidase Ab Negative Negative [facility] Myeloperoxidase Quantitative 1 <=20 units [facility] Proteinase 3 Ab Negative Negative [facility] PR3 Ab 1 <=20 units [facility] 08/21/2024 12:2 1 PM EDT 08/21/2024 12:41 PM EDT Charan Villalobos MD LAB BLOOD ORDERABLES Final Resul t Performing Organization Address City/[facility]/ZIP Co de Phone Number [facility] [address] [place] [address] * IMMUNOFIXATION INTERPRETATION (08/21/2024 6:56 AM EDT) Pathologist Interpretation Reviewed by Criselda Mcdowell MD [facility] 08/21/2024 6:56 AM EDT 08/21/2024 7:41 AM EDT us Tobin Alfaro MD LAB BLOOD ORDERABLES Final Resu lt Performing Organization Address [facility] Co de Phone Number [facility] [address] [place] [address] * Immunofixation electrophoresis (08/21/2024 6:56 AM EDT) Immunofixation Result, Serum No monoclonal immunoglobulins detected. [facility] 08/21/2024 6:56 AM EDT 08/21/2024 7:41 AM EDT us Tobin Alfaro MD LAB BLOOD ORDERABLES Final Resu lt Performing Organization Address [facility] Co de Phone Number [facility] [address] [place] [address] * (ABNORMAL) EXT RESULT ENTRY (08/21/2024) WBC 6.2 3.3 - 10.0 10*3/ML Red Blood Cell Count 13.3 Hemoglobin 41.3(A) 13.5 - 17.5 Platelets 431(A) 150 - 399 10*3/UL Sodium 142 137 - 147 Potassium 3.8 3.4 - 5.5 Carbon Dioxide 25 mmol/L Glucose 231(A) 60 - 200 BUN 27(A) 4 - 21 mg/dL Creatinine 4.22(A) 0.60 - 1.30 mg/dL Calcium 8.3(A) 8.7 - 10.7 mg/dL eGFR Non-Afr Vietnamese 16 08/21/2024 us Historical Provider LAB BLOOD ORDERABLES Elin l Result from Last 3 Months Insurance [facility] Medicaid Care Teams Sailmaker Relationship Specialty Start Date End Date Elizabeth De La Fuente MD [address] [place] [address] [phone] PCP - General Internal Medicine 08/24/24
== END 2024-10-09 11:05 | disposition home or self-care (01) ==
LOC: HO.HKA 10:15
PROVIDERS: PCP Internal Medicine; Visit Provider Internal Medicine Nephrology
DX: N17.9 Acute kidney failure, unspecified (principal); I12.9 Hypertensive chronic kidney disease with stage 1 through stage 4 chronic kidney disease, or unspecified chronic kidney disease; N18.4 Chronic kidney disease, stage 4 (severe); E87.20 Acidosis, unspecified; N25.81 Secondary hyperparathyroidism of renal origin; E55.9 Vitamin D deficiency, unspecified
CPT/HCPCS: 99214

== ENCOUNTER 2024-10-09 11:11 | Outpatient (REF) | payer OTHER, SELFPAY ==
[2024-10-09 14:01] LABS: Anion Gap 12 (12-20); Blood Urea Nitrogen 54 mg/dL (9-16); Calcium 8.9 mg/dL (8.4-10.2); Carbon Dioxide 22 mmol/L (22-29); Chloride 111 mmol/L (96-108); Estimated Glomerular Filt Rate 10; Potassium 4.1 mmol/L (3.3-5.1); Sodium 141 mmol/L (135-145)
[2024-10-09 14:35] LABS: Creatinine Urine 137.48 mg/dL
[2024-10-09 14:45] LABS: Protein/Creatinine Ratio, Ur 7.91 (<0.2); Total Protein Urine Random 1087 mg/dL (<12)
[2024-10-13 10:22] LABS: IgA 199 mg/dL (47-310); IgG 597 mg/dL (600-1640); IgM 55 mg/dL (50-300)
== END 2024-10-09 11:12 | disposition home or self-care (01) ==
LOC: HO.10HDL 11:11
PROVIDERS: Visit Provider Internal Medicine Nephrology
DX: N17.9 Acute kidney failure, unspecified (principal); N18.9 Chronic kidney disease, unspecified
CPT/HCPCS: 80051; 82310; 82565; 82570; 82784; 84156; 84520; 86334; 86335; 99212

== ENCOUNTER 2024-10-14 11:14 | Outpatient (AMB) | payer OTHER, SELFPAY ==
--- NOTE | 2024-10-14 11:27 | HO.NEPHOV ---
Vital Signs 10/14/24 11:28 Height 6 ft 3 in Weight 283 lb 4 oz BMI 35.4 BP 140/90 H Blood Pressure Location Rt brachial Position Sitting Pulse 89 Pulse Source Pulse Oximeter Pulse Oximetry (%) 97 Oxygen Delivery Method Room Air Intake Visit Reasons: 1wk follow-up per to Double book Tube Sizer And Cutter Operator Required: No Accompanied by: Self / Same As Patient Allergies No Known Allergies Allergy (Verified 10/14/24 11:28) HPI Comments Details: 49-year-old male with insulin-dependent diabetes mellitus was seen for F/U for advanced CKD. He denies fever, chills, nausea, vomiting, chest pain, palpitations, shortness of breath, abdominal pain, changes in urinary or bowel habits.His renal functions has been declining but denies uremic symptoms. His grand mother was on HD. His dad had CKD. His uncle was on HD.His UO is good. He has no hypoglycemias. [facility] Medical History (Updated 10/14/24 @ 11:52 by Kleber Dixon MD) Hypertension Insulin dependent type 2 diabetes mellitus Surgical History History of repair of ACL History of leg amputation Family History Paternal Uncle Diabetes Paternal Grandmother Dialysis patient Social History Alcohol intake: current Comment: Socially Patient Tobacco Use Status: Never used Tobacco service: No Review of Systems Const All systems reviewed & are unremarkable except as noted in HPI and below Physical Exam Vital Signs: Last Vital Signs Pulse 89 10/14/24 11:28 BP 140/90 H 10/14/24 11:28 Pulse Ox 97 10/14/24 11:28 Oxygen Delivery Method Room Air 10/14/24 11:28 BMI result Body Mass Index 35.4 Const General: comfortable and no acute distress Orientation/consciousness: patient oriented x3 HEENT Head: Yes normocephalic Mouth: Normal oral and palatal mucosa present Eyes EOM: EOMs intact bilaterally Neck Neck: Yes supple Resp Auscultation: clear to auscultation bilaterally Cardio Jugular venous distension: no JVD Rate: regular rate GI Palpation (GI): Soft to palpation Auscultation: normal bowel sounds General: Yes no CVA tenderness Back/Spine/Pelvis Back: no CVA tenderness Skin General skin exam: no rashes or lesions noted Neuro General: patient oriented x3 and moves all extremities Results Reviewed Nephrology Results: Hgb 12.0 g/dl (14.0-18.0) L 09/25/24 WBC 14.0 X10*3/uL (4.8-10.8) H 09/25/24 Plt Count 343 X10*3/uL (160-400) 09/25/24 Sodium 141 mmol/L (135-145) 10/09/24 Potassium 4.1 mmol/L (3.3-5.1) 10/09/24 Chloride 111 mmol/L (96-108) H 10/09/24 Carbon Dioxide 22 mmol/L (22-29) 10/09/24 BUN 54 mg/dL (9-16) H 10/09/24 Creatinine 6.18 mg/dL (0.5-1.4) H* 10/09/24 Calcium 8.9 mg/dL (8.4-10.2) 10/09/24 PTH Intact 271.8 pg/mL (8.7-77.1) H 09/25/24 Urine Protein >=1000 (4+) mg/dL (Neg-Trace) H 09/24/24 Urine Creatinine 137.48 mg/dL 10/09/24 Protein/Creatinin Ratio 7.91 (<0.2) H 10/09/24 Renal US 09/24/24 Assessment & Plan Assessment & Plan (1) Chronic kidney disease, stage 5: Code(s): N18.5 - Chronic kidney disease, stage 5 Category: Medical (2) Vitamin D deficiency: Code(s): E55.9 - Vitamin D deficiency, unspecified Category: Medical (3) Secondary hyperparathyroidism (of renal origin): Code(s): N25.81 - Secondary hyperparathyroidism of renal origin Category: Medical (4) Hypertension: Code(s): I10 - Essential (primary) hypertension Category: Medical Qualifiers: Hypertension type: primary hypertension Qualified Code(s): I10 - Essential (primary) hypertension Plan He has advanced CKD and denies uremic symptoms. His BP is at goal. He is on Vitamin D. I did a referral for PD education and for transplant evaluation. I did not make any medication changes today. Answered all questions and F/U was given Orders: Orders Creatinine 2 Weeks N18.5 - Chronic kidney disease, stage 5 Blood Urea Nitrogen 2 Weeks N18.5 - Chronic kidney disease, stage 5 Electrolytes 2 Weeks N18.5 - Chronic kidney disease, stage 5 Calcium 2 Weeks N18.5 - Chronic kidney disease, stage 5 Phosphorus 2 Weeks N18.5 - Chronic kidney disease, stage 5 Vitamin D 25-OH Total 2 Weeks N18.5 - Chronic kidney disease, stage 5 Referrals Transplant Surgery Referral N18.5 - Chronic kidney disease, stage 5 Coding Level of Care Code Est Pt Level 4 (85311) Diagnoses Chronic kidney disease, stage 5 N18.5 Vitamin D deficiency E55.9 Secondary hyperparathyroidism (of renal origin) N25.81 Primary hypertension I10 Hypertension type: primary hypertension
[2024-10-14 11:28] VITALS: BP 140/90; PULSE 89; O2SAT 97; BMI 35.4
--- OUTSIDE RECORDS SUMMARY | 2024-10-14 12:17 | XMS_ITS | Clinical Summary ---
Author Organization [facility] Address [address] [address] Phone Care Team Providers Care Engagement Engineer Name Role Phone Elizabeth De La Fuente MD Primary Care Provider [phone] Medications amLODIPine (NORVASC) 10 MG tablet Take [...] Orders Only [facility]. [address] [address] Charan Villalobos MD from Last [...] (08/21/2024 12:21 PM EDT) DAMARIS Negative Negative [facility] 08/21/2024 12:2 1 PM EDT 08/21/2024 12:41 PM EDT us Charan Villalobos MD LAB BLOOD ORDERABLES Final Resul t GANESH [facility] [address] [place] [address] * Anti-neutrophilic cytoplasmic antibody (08/21/2024 12:21 PM EDT) Myeloperoxidase Ab Negative Negative [facility] Myeloperoxidase Quantitative 1 <=20 units [facility] Proteinase 3 Ab Negative Negative [facility] PR3 Ab 1 <=20 units [facility] 08/21/2024 12:2 1 PM EDT 08/21/2024 12:41 PM EDT Charan Villalobos MD LAB BLOOD ORDERABLES Final Resul t Performing Organization Address City/[facility]/ZIP Co de Phone Number [facility] [address] [place] [address] * IMMUNOFIXATION INTERPRETATION (08/21/2024 6:56 AM EDT) Pathologist Interpretation Reviewed by Criselda Mcdowell MD [facility] 08/21/2024 6:56 AM EDT 08/21/2024 7:41 AM EDT us Tobin Alfaro MD LAB BLOOD ORDERABLES Final Resu lt Performing Organization Address [facility] Co de Phone Number [facility] [address] [place] [address] * Immunofixation electrophoresis (08/21/2024 6:56 AM EDT) Immunofixation Result, Serum No monoclonal immunoglobulins detected. [facility] 08/21/2024 6:56 AM EDT 08/21/2024 7:41 AM EDT us Tobin Alfaro MD LAB BLOOD ORDERABLES Final Resu lt Performing Organization Address [facility] Co de Phone Number [facility] [address] [place] [address] * (ABNORMAL) EXT RESULT ENTRY (08/21/2024) WBC [...] 8.3(A) 8.7 - 10.7 mg/dL eGFR Non-Afr Welsh 16 08/21/2024 us Historical Provider LAB BLOOD ORDERABLES Elin l Result from Last 3 Months Insurance [facility] Medicaid Care Teams Engagement Engineer Relationship Specialty Start Date End Date Elizabeth De La Fuente MD [address] [place] [address] [phone] PCP - General Internal Medicine 08/24/24
== END 2024-10-14 11:55 | disposition home or self-care (01) ==
LOC: HO.HKA 11:20
PROVIDERS: PCP Internal Medicine; Visit Provider Internal Medicine Nephrology
DX: N18.5 Chronic kidney disease, stage 5 (principal); E55.9 Vitamin D deficiency, unspecified; N25.81 Secondary hyperparathyroidism of renal origin; I12.0 Hypertensive chronic kidney disease with stage 5 chronic kidney disease or end stage renal disease
CPT/HCPCS: 99214

== ENCOUNTER → 2024-10-14 11:14 | Outpatient (BNVA) | payer OTHER, SELFPAY | PROVIDERS: PCP Internal Medicine; Visit Provider Internal Medicine Nephrology | DX: I12.9 Hypertensive chronic kidney disease with stage 1 through stage 4 chronic kidney disease, or unspecified chronic kidney disease (principal); N18.5 Chronic kidney disease, stage 5; N25.81 Secondary hyperparathyroidism of renal origin; E55.9 Vitamin D deficiency, unspecified | CPT/HCPCS: 99212 ==